=== PATIENT | female | born 1995 | race Caucasian/White ===

== ENCOUNTER 2023-01-02 12:34 | Emergency (ER) | payer OTHER ==
--- OUTSIDE RECORDS SUMMARY | 2023-01-02 12:40 | XMS REPORT | Continuity of Care Document ---
:1995 Author Organization [facility] t Address [address] [facility] [place] [place] [address] Care Team Providers Name Role Phone Chris Modi Primary Care Physician Hannah Argueta Attending Clinician Unavailable Christina Rangel Attending Clinician Unavailable AFSANEH VALLEJO Attending Clinician Unavailable STEPHEN HUFF Attending Clinician Unavailable ALAINA JONES MEDICAL Attending Clinician Unavailabl e LAB90 Attending Clinician Unavailable Misys Mendoza Attending Clinician Unavailable Jamia Wheatley Attending Clinician Unavailable SUKHWINDER MATHIS Attending Clinician Unavailable Lab, Adc Fam Pob I Attending Clinician Unavailable Oliva Zhao Attending Clinician Doctor Unassigned, Harbine Attending Clinician Unavailable KENDALL VILLATORO Attending Clinician Unavailable ANNA COVINGTON Attending Clinician Unavailable Garcia Taylor Admitting Clinician Unavailable Payers Payer Name Policy Type Policy Number Effective Date Expiration Date S escobar BCBS OF P [id number] [facility] AETNA MP SILVER 9 [id number] 2022 $30 COPAY 4000 00:00:00 BASIC 87 Blue Cross Blue 6 [id number] 2018 [facility] Shield of [place] 00:00:00 - [facility] BCBS ADV HMO [id number] 2018 EXCHANGE 00:00:00 Problems Condition Condition Condition Status Onset Resolution Last Treating Co mments Source Name Details Category Date Date Treatment Clinician Date Morbid Morbid Disease Active [facility] obesity 12-07 [facility] 00:00: Medical 00 [place] Osseo Osseo Disease Active [facility] St toxicity toxicity 12-06 [facility] 00:00: Medical 00 [place] Obesity Obesity Disease Active Univers (BMI (BMI 1-04 ity of 30-39.9) 30-39.9) 00:00: [place] [address] Medical Branch No known No known Disease Kelse y active active Seybold problems problems - Externa l [id number] PMDD Problem Active Common (premenstr Spirit ual - [facility] dysphoric [facility] disorder) [facility] [id number] IUD Problem Active Common surveillan Spirit ce [facility] [id number] Bulimia Problem Active Common [facility] [id number] Plantar Problem Active Comm on [id number] wart of Spirit left foot [facility] Asthma Asthma Problem Active Common [facility] [id number] Abnormal Problem Active Comm on EKG [facility] [id number] Dizziness Problem Active Com mon [facility] Mixed Depression Problem Active Commo n anxiety with Spirit and anxiety - CHI depressive [facility] [id number] Atypical Problem Active Comm on anorexia Spirit nervosa [facility] [id number] Eating Problem Active Common disorder, Spirit unspecifie - CHI d type [facility] [id number] Elevated Problem Active Comm on BP without Spirit diagnosis - [facility] of [facility] hypertensi [facility] [id number] POTS Problem Active Common (postural Spirit orthostati - [facility] c [facility] tachycardi [facility] syndrome) Center Bipolar Bipolar Disease Active [facility] St disorder disorder [facility] Allergies, Adverse Reactions, Alerts Allergy Allergy Status Severity Reaction(s) Onset Inactive Treating Comm ents Source Name Type Date Date Clinician NO KNOWN Allergy Active [facility] St ALLERGIE [facility] NO KNOWN Drug Active Univers ALLERGIE Class ity of S [facility] Social History Social Habit Start Date Stop Date Quantity Comments Source Exposure to Not sure [facility] of SARS-CoV-2 [facility] (event) Branch History of Common Spirit - Tobacco Use [facility] History SDOH [facility] Alcohol Std Medical Cent[facility] r Drinks History SDOH [facility] Alcohol Binge Medical Yung ter History SDOH [facility] Alcohol Comment Medical C enter Alcohol intake 2020-10-26 2020-10-26 Current [facility] St Alistair es 00:00:00 00:00:00 non-drinker of Medical Ce nter alcohol (finding) Tobacco use and 2020-08-11 2020-08-[address] [facility] exposure 00:00:00 00:00:00 [facility] History SDOH 2019-10-16 2019-10-[address] [facility] Alcohol Frequency 00:00:00 00:00:[address] [facility] Tobacco Comment 2016-12-06 2016-12-06 used to [facility] 00:00:00 00:00:00 [place], stopped Medical C enter smoking last year Sex Assigned At [address] [facility] 00:00:00 00:00:00 [facility] Smoking Status Start Date Stop Date Source Unknown if ever smoked [facility] Never smoked tobacco Alaina Peña old - External Former Smoker 2021-10-24 00:00:00 2021-10-24 00:00:00 Common S pirit - [facility] nter Current every day 2020-08-11 00:00:[address] [facility] [address] Alistair es Medical smoker Center Medications Ordered Filled Start Stop Current Ordering Indication Dosage Frequency Signature Comments Components Source Medication Medication Date Date Medication? Clinician (SIG) Name Name Levonorgest Yes by other Ke lsey rel 2-24 route Seybold (Mirena, 52 10:40: - MG,) 20 50 Externa MCG/DAY l intrauterin e IUD Pantoprazol 2023-0 Yes 1{tbl} Take 1 Ke livey e Sodium 40 2-24 tablet by Sey bold MG oral 10:40: mouth - Tablet 50 daily Externa Delayed l Response methylPREDN 2022-0 Yes [id number] 1{lacey} Take 1 lacey Foley ISolone 4 2-22 by mouth Seybol d MG oral 00:00: See Admin - Tablet 00 Instructio Externa Therapy ns Use as l Pack directed Benzonatate 2022-0 Yes [id number] 100mg Q.[id number] Take 1 Alaina (Tessalon 2-22 [id number] capsule S eybold Perles) 100 00:00: 3D (100 mg - MG oral 00 total) by Externa Capsule mouth 3 l times daily as needed for cough guaiFENesin 2022-0 Yes [id number] 5mL Q.[id number] Take 5 mL Alaina -Codeine 2-22 [id number] by mouth 3 Seybold 100-10 00:00: 3D times - MG/5ML oral 00 daily as Exte rna Syrup needed for l cough methylPREDN 2022-0 Yes [id number] 1{lacey} Take 1 lacey Foley ISolone 4 2-22 by mouth Seybol d MG oral 00:00: See Admin - Tablet 00 Instructio Externa Therapy ns Use as l Pack directed Benzonatate 2022-0 Yes [id number] 100mg Q.[id number] Take 1 Alaina (Tessalon 2-22 [id number] capsule S eybold Perles) 100 00:00: 3D (100 mg - MG oral 00 total) by Externa Capsule mouth 3 l times daily as needed for cough guaiFENesin 2022-0 Yes [id number] 5mL Q.[id number] Take 5 mL Alaina -Codeine 2-22 [id number] by mouth 3 Seybold 100-10 00:00: 3D times - MG/5ML oral 00 daily as Exte rna Syrup needed for l cough Azithromyci 2022-0 202- Yes [id number] Take 2 Alaina n 250 MG 2-22 -28 tablets by Seyb old oral Tablet 00:00: 05:59 mouth on - 00 :00 day 1 then Externa 1 tablet l by mouth daily for 4 days thereafter . Azithromyci 2022-0 2023- Yes [id number] Take 2 Alaina n 250 MG 2-27 12-28 tablets by Seyb old oral Tablet 00:00: 05:59 mouth on - 00 :00 day 1 then Externa 1 tablet l by mouth daily for 4 days thereafter . Gabapentin 2022-0 Yes 1200mg Take 1,200 Alaina 600 MG oral 2-04 mg by Seybold Tablet 00:00: mouth 2 - 00 times Externa daily l Gabapentin 2022-0 Yes 1200mg Take 1,200 Alaina 600 MG oral 2-04 mg by Seybold Tablet 00:00: mouth 2 - 00 times Externa daily l Ondansetron 2022-0 2022- No 4mg Take 4 mg Alaina HCl -23 11-19 by mouth Seybold (ZOFRAN) 4 18:47: 00:00 - MG OR TABS 03 :00 Externa l Amoxicillin 2022-0 2022- No 500mg Take 500 Alaina 500 MG OR 11-23-19 mg by Seybold TABS 18:46: 00:00 mouth 3 - 57 :00 times Externa daily l Levonorgest 0 Yes by other Ke lsey rel 1-19 route Seybold (Mirena, 52 10:18: - MG,) 20 14 Externa MCG/DAY l intrauterin e IUD Pantoprazol Yes 1{tbl} Take 1 Ke lsey e Sodium 40 1-19 tablet by Sey bold MG oral 10:18: mouth - Tablet 14 daily Externa Delayed l Response Levonorgest 0 Yes by other Ke lsey rel 1-19 route Seybold (Mirena, 52 10:18: - MG,) 20 14 Externa MCG/DAY l intrauterin e IUD Pantoprazol 0 Yes 1{tbl} Take 1 Ke lsey e Sodium 40 1-19 tablet by Sey bold MG oral 10:18: mouth - Tablet 14 daily Externa Delayed l Response Aripiprazol 2022-0 Yes 1{tbl} Take 1 Ke lsey e 5 MG oral 1-13 tablet by Sey bold Tablet 00:00: mouth - 00 daily Externa l Aripiprazol 2022-0 Yes 1{tbl} Take 1 Ke lsey e 5 MG oral 1-13 tablet by Sey bold Tablet 00:00: mouth - 00 daily Externa l Aripiprazol Yes 1{tbl} Take 1 Ke lsey e 5 MG oral 1-13 tablet by Sey bold Tablet 00:00: mouth - 00 daily Externa l Albuterol Yes INHALE TWO Ke lsey HFA 108 (90 1-05 (2) PUFFS Sey bold Base) 00:00: BY MOUTH - MCG/ACT IN 00 EVERY 4-6 Exte rna AERS HOURS l NEEDED FOR SHORTNESS OF BREATH, COUGH, OR WHEEZING. Albuterol Yes INHALE TWO Ke lsey HFA 108 (90 1-05 (2) PUFFS Sey bold Base) 00:00: BY MOUTH - MCG/ACT IN 00 EVERY 4-6 Exte rna AERS HOURS l NEEDED FOR SHORTNESS OF BREATH, COUGH, OR WHEEZING. Albuterol Yes INHALE TWO Ke lsey HFA 108 (90 1-05 (2) PUFFS Sey bold Base) 00:00: BY MOUTH - MCG/ACT IN 00 EVERY 4-6 Exte rna AERS HOURS l NEEDED FOR SHORTNESS OF BREATH, COUGH, OR WHEEZING. Duloxetine 2021-11 Yes 120mg Take 120 Ke lsey HCl 60 MG 2-26 mg by Seybold oral Cap 00:00: mouth - Particles 00 daily Externa l Vyvanse 50 2021-11 Yes 50mg Take 50 mg K elsey MG oral 2-26 by mouth Seybold Capsule 00:00: daily - 00 Externa l Zolpidem 2021-11 Yes TAKE ONE Kelse y Tartrate 5 2-26 (1) OR TWO Sey bold MG oral 00:00: (2) - Tablet 00 TABLET(S) Externa BY MOUTH l ONCE A DAY AT BEDTIME NEEDED FOR SLEEP. Duloxetine 2021-11 Yes 120mg Take 120 Ke lsey HCl 60 MG 2-26 mg by Seybold oral Cap DR 00:00: mouth - Particles 00 daily Externa l Vyvanse 50 2021-11 Yes 50mg Take 50 mg K elsey MG oral 2-26 by mouth Seybold Capsule 00:00: daily - 00 Externa l Zolpidem 2021-11 Yes TAKE ONE Kelse y Tartrate 5 2-26 (1) OR TWO Sey bold MG oral 00:00: (2) - Tablet 00 TABLET(S) Externa BY MOUTH l ONCE A DAY AT BEDTIME NEEDED FOR SLEEP. Duloxetine 2021-11 Yes 120mg Take 120 Ke lsey HCl 60 MG 2-26 mg by Seybold oral Cap DR 00:00: mouth - Particles 00 daily Externa l Vyvanse 50 2021-11 Yes 50mg Take 50 mg K elsey MG oral 2-26 by mouth Seybold Capsule 00:00: daily - 00 Externa l Zolpidem 2021-11 Yes TAKE ONE Kelse y Tartrate 5 2-26 (1) OR TWO Sey bold MG oral 00:00: (2) - Tablet 00 TABLET(S) Externa BY MOUTH l ONCE A DAY AT BEDTIME NEEDED FOR SLEEP. Ondansetron 2021-[address] K elsey (ZOFRAN) 4 1-08 (1) TABLET Sey bold MG oral 00:00: BY MOUTH - TABLET 00 ON THE Externa DISPERSIBLE TONGUE AND l ALLOW TO DISSOLVE EVERY 8 HOURS NEEDED. Ondansetron 2021-[address] K elsey (ZOFRAN) 4 1-08 (1) TABLET Sey bold MG oral 00:00: BY MOUTH - TABLET 00 ON THE Externa DISPERSIBLE TONGUE AND l ALLOW TO DISSOLVE EVERY 8 HOURS NEEDED. Ondansetron 2021-[address] K elsey (ZOFRAN) 4 1-08 (1) TABLET Sey bold MG oral 00:00: BY MOUTH - TABLET 00 ON THE Externa DISPERSIBLE TONGUE AND l ALLOW TO DISSOLVE EVERY 8 HOURS NEEDED. Prazosin 2020-11 Yes 1{capsu 1 capsule K elsey HCl 5 MG 0-17 le} by other Seybold oral 00:00: route - Capsule 00 Externa l Prazosin 2020-11 Yes 1{capsu 1 capsule K elsey HCl 5 MG 0-17 le} by other Seybold oral 00:00: route - Capsule 00 Externa l Prazosin 2020-11 Yes 1{capsu 1 capsule K elsey HCl 5 MG 0-17 le} by other Seybold oral 00:00: route - Capsule 00 Externa l fLUoxetine Yes 30mg QD Take [address] (PROZAC) 10 4-10 by mouth Luke s MG capsule 15:14: daily. Medic al 46 [place] fLUoxetine 2020-0 Yes 30mg QD Take [address] (PROZAC) 10 4-10 by mouth Luke s MG capsule 15:14: daily. Medic al 46 [place] OLANZapine 2019-0 Yes TK [address] [facility] (ZYPREXA) 4-02 [facility] 7.5 MG 00:00: Medical tablet 00 [place] OLANZapine 2019-0 Yes TK [address] [facility] (ZYPREXA) 4-02 [facility] 7.5 MG 00:00: Medical tablet 00 [place] clomiPRAMIN 2019-0 Yes TK [address] [facility] 3-24 [facility]D [facility] (ANAFRANIL) 00:00: Medica l 50 MG 00 [place] capsule clomiPRAMIN 2019-0 Yes TK [address] [facility] 3-[facility]D [facility] (ANAFRANIL) 00:00: Medica l 50 MG 00 [place] capsule gabapentin 2019-0 Yes TK [address] [facility] (NEURONTIN) 3-20 QD [facility] 300 MG 00:00: Medical capsule 00 [place] gabapentin 2019-0 Yes TK [address] [facility] (NEURONTIN) 3-20 QD [facility] 300 MG 00:00: Medical capsule 00 [place] hydrOXYzine 2019-0 Yes TK [address] [facility] (VISTARIL) 2-19 TID PRN [facility]ukes 25 MG 00:00: Medical capsule 00 [place] hydrOXYzine 2019-0 Yes TK [address] C [facility] (VISTARIL) 2-19 TID PRN [facility]ukes 25 MG 00:00: Medical capsule 00 [place] Ventolin Ventolin Yes Christina 2 puffs as Common HFA HFA 3-06 Millender needed Spirit 00:00: - CHI 00 [facility] Drospirenon Drospirenon 2017- Yes Christina 1 tablet Common e-Ethinyl e-Ethinyl 2-14 Millender Spirit Estradiol Estradiol 00:00: - C HI [facility] hyoscyamine 2016- Yes .125mg Take 1 Un buffy 0.125 mg 1-04 tablet by ity of tablet 00:00: mouth [place] 00 every 4 Medical (four) Branch hours as needed for Pain (scale 7-10). famotidine 2017-0 Yes 20mg Take 1 Unive rs 20 mg 1-04 tablet by ity of tablet 00:00: mouth 2 [place] 00 (two) Medical times Branch daily. ondansetron 2017-0 Yes 4mg Take 1 Univ ers 4 mg 1-04 tablet by ity of disintegrat 00:00: mouth [place] ing tablet 00 every 8 Medica l (eight) Branch hours as needed for Nausea and Vomiting (N/V). hyoscyamine 2017-0 Yes .125mg Take 1 Un buffy 0.125 mg 1-04 tablet by ity of tablet 00:00: mouth [place] 00 every 4 Medical (four) Branch hours as needed for Pain (scale 7-10). famotidine 2017-0 Yes 20mg Take 1 Unive rs 20 mg 1-04 tablet by ity of tablet 00:00: mouth 2 [place] 00 (two) Medical times Branch daily. ondansetron 2017-0 Yes 4mg Take 1 Univ ers 4 mg 1-04 tablet by ity of disintegrat 00:00: mouth [place] ing tablet 00 every 8 Medica l (eight) Branch hours as needed for Nausea and Vomiting (N/V). hyoscyamine 2017-0 Yes .125mg Take 1 Un buffy 0.125 mg 1-04 tablet by ity of tablet 00:00: mouth [place] 00 every 4 Medical (four) Branch hours as needed for Pain (scale 7-10). famotidine 2017-0 Yes 20mg Take 1 Unive rs 20 mg 1-04 tablet by ity of tablet 00:00: mouth 2 [place] 00 (two) Medical times Branch daily. ondansetron 2017-0 Yes 4mg Take [address] (ZOFRAN-ODT 1-04 by mouth. Alistair es ) 4 MG 00:00: Medical disintegrat 00 Center ing tablet ondansetron 2017-0 Yes 4mg Take [address] (ZOFRAN-ODT 1-04 by mouth. Alistair es ) 4 MG 00:00: Medical disintegrat 00 Center ing tablet ondansetron 2017-0 Yes 4mg Take 1 Univ ers 4 mg 1-04 tablet by ity of disintegrat 00:00: mouth [place] ing tablet 00 every 8 Medica l (eight) Branch hours as needed for Nausea and Vomiting (N/V). Mirena (52 Mirena (52 Yes Christina as Co mmon MG) MG) Millender directed [facility] Seroquel Seroquel Yes Christina 1 tablet Co mmon Millender [facility] Luvox CR Luvox CR Yes Christina 300 mg>>>1 Common Millender capsule [facility] Prazosin Prazosin Yes Christina 1 [facility] OLANZapine OLANZapine No 1{table QD 10 MG 10 MG t} Reglan 5 MG Reglan 5 MG No 1{table QD t_befor e_meals } Gabapentin Gabapentin No 1{capsu TID 300 MG 300 MG le} ARIPiprazol ARIPiprazol No e 10 MG e 10 MG Naltrexone Naltrexone No HCl 50 MG HCl 50 MG hydrOXYzine hydrOXYzine No Pamoate 25 Pamoate 25 MG MG Prazosin Prazosin No 2{capsu QD HCl 2 MG HCl 2 MG le} Mirena (52 Mirena (52 No MG) 20 MG) 20 MCG/24HR MCG/24HR Pantoprazol Pantoprazol No e Sodium 40 e Sodium 40 MG MG clomiPRAMIN clomiPRAMIN No E HCl 50 MG E HCl 50 MG Propranolol Propranolol No HCl 20 MG HCl 20 MG OLANZapine OLANZapine No 1{table QD 10 MG 10 MG t} Reglan 5 MG Reglan 5 MG No 1{table QD t_befor e_meals } Gabapentin Gabapentin No 1{capsu TID Gabapentin 300 MG 300 MG le} 300 MG ARIPiprazol ARIPiprazol No ARIPiprazo e 10 MG e 10 MG le 10 MG Naltrexone Naltrexone No Naltrexone HCl 50 MG HCl 50 MG HCl 50 MG hydrOXYzine hydrOXYzine No hydrOXYzin Pamoate 25 Pamoate 25 e Pamoate MG MG 25 MG Prazosin Prazosin No 2{capsu QD Prazosin HCl 2 MG HCl 2 MG le} HCl 2 MG Mirena (52 Mirena (52 No Mirena (52 MG) 20 MG) 20 MG) 20 MCG/24HR MCG/24HR MCG/24HR Pantoprazol Pantoprazol No Pantoprazo e Sodium 40 e Sodium 40 le Sodium MG MG 40 MG clomiPRAMIN clomiPRAMIN No clomiPRAMI E HCl 50 MG E HCl 50 MG NE HCl 50 MG Propranolol Propranolol No Propranolo HCl 20 MG HCl 20 MG l HCl 20 MG OLANZapine OLANZapine No 1{table QD OLANZapine 10 MG 10 MG t} 10 MG Reglan 5 MG Reglan 5 MG No 1{table QD Reglan 5 t_befor MG e_meals } Naltrexone Naltrexone No Naltrexone HCl 50 MG HCl 50 MG HCl 50 MG Reglan 5 MG Reglan 5 MG No 1{table QD Reglan 5 t_befor MG e_meals } OLANZapine OLANZapine No 1{table QD OLANZapine 10 MG 10 MG t} 10 MG clomiPRAMIN clomiPRAMIN No clomiPRAMI E HCl 50 MG E HCl 50 MG NE HCl 50 MG Pantoprazol Pantoprazol No Pantoprazo e Sodium 40 e Sodium 40 le Sodium MG MG 40 MG hydrOXYzine hydrOXYzine No hydrOXYzin Pamoate 25 Pamoate 25 e Pamoate MG MG 25 MG Prazosin Prazosin No 2{capsu QD Prazosin HCl 2 MG HCl 2 MG le} HCl 2 MG Propranolol Propranolol No Propranolo HCl 20 MG HCl 20 MG l HCl 20 MG Gabapentin Gabapentin No 1{capsu TID Gabapentin 300 MG 300 MG le} 300 MG ARIPiprazol ARIPiprazol No ARIPiprazo e 10 MG e 10 MG le 10 MG Mirena (52 Mirena (52 No Mirena (52 MG) 20 MG) 20 MG) 20 MCG/24HR MCG/24HR MCG/24HR Naltrexone Naltrexone No Naltrexone HCl 50 MG HCl 50 MG HCl 50 MG Reglan 5 MG Reglan 5 MG No 1{table QD Reglan 5 t_befor MG e_meals } OLANZapine OLANZapine No 1{table QD OLANZapine 10 MG 10 MG t} 10 MG clomiPRAMIN clomiPRAMIN No clomiPRAMI E HCl 50 MG E HCl 50 MG NE HCl 50 MG Pantoprazol Pantoprazol No Pantoprazo e Sodium 40 e Sodium 40 le Sodium MG MG 40 MG hydrOXYzine hydrOXYzine No hydrOXYzin Pamoate 25 Pamoate 25 e Pamoate MG MG 25 MG Prazosin Prazosin No 2{capsu QD Prazosin HCl 2 MG HCl 2 MG le} HCl 2 MG Propranolol Propranolol No Propranolo HCl 20 MG HCl 20 MG l HCl 20 MG Gabapentin Gabapentin No 1{capsu TID Gabapentin 300 MG 300 MG le} 300 MG ARIPiprazol ARIPiprazol No ARIPiprazo e 10 MG e 10 MG le 10 MG Mirena (52 Mirena (52 No Mirena (52 MG) 20 MG) 20 MG) 20 MCG/24HR MCG/24HR MCG/24HR Gabapentin Gabapentin No 1{capsu TID Gabapentin 300 MG 300 MG le} 300 MG ARIPiprazol ARIPiprazol No ARIPiprazo e 10 MG e 10 MG le 10 MG Naltrexone Naltrexone No Naltrexone HCl 50 MG HCl 50 MG HCl 50 MG hydrOXYzine hydrOXYzine No hydrOXYzin Pamoate 25 Pamoate 25 e Pamoate MG MG 25 MG Prazosin Prazosin No 2{capsu QD Prazosin HCl 2 MG HCl 2 MG le} HCl 2 MG Mirena (52 Mirena (52 No Mirena (52 MG) 20 MG) 20 MG) 20 MCG/24HR MCG/24HR MCG/24HR Pantoprazol Pantoprazol No Pantoprazo e Sodium 40 e Sodium 40 le Sodium MG MG 40 MG clomiPRAMIN clomiPRAMIN No clomiPRAMI E HCl 50 MG E HCl 50 MG NE HCl 50 MG Propranolol Propranolol No Propranolo HCl 20 MG HCl 20 MG l HCl 20 MG OLANZapine OLANZapine No 1{table QD OLANZapine 10 MG 10 MG t} 10 MG Reglan 5 MG Reglan 5 MG No 1{table QD Reglan 5 t_befor MG e_meals } Gabapentin Gabapentin No 1{capsu TID 300 MG 300 MG le} ARIPiprazol ARIPiprazol No e 10 MG e 10 MG Naltrexone Naltrexone No HCl 50 MG HCl 50 MG hydrOXYzine hydrOXYzine No Pamoate 25 Pamoate 25 MG MG Prazosin Prazosin No 2{capsu QD HCl 2 MG HCl 2 MG le} Mirena (52 Mirena (52 No MG) 20 MG) 20 MCG/24HR MCG/24HR Pantoprazol Pantoprazol No e Sodium 40 e Sodium 40 MG MG clomiPRAMIN clomiPRAMIN No E HCl 50 MG E HCl 50 MG Propranolol Propranolol No HCl 20 MG HCl 20 MG Immunizations Ordered Immunization Filled Immunization Date Status Commen ts Source Name Name Tdap- (Boostrix, 2020-10-24 Completed Alaina Martinez) 00:00:00 - External Tdap- (Boostrix, 2020-10-24 Completed Alaina friedman Adacel) 00:00:00 - External Tdap- (Boostrix, 2020-10-24 Completed Alaina friedman [place]ike) 00:00:00 - External Tdap 2020-10-[address] [facility] 00:00:00 [facility] Tdap 2020-10-[address] [facility] 00:00:00 [facility] Meningococcal 2016-03-22 Completed Alaina Seyb old Vaccine- 00:00:00 - External Conjugate(Menactra) Meningococcal 2016-03-22 Completed Alaina Seyb old Vaccine- 00:00:00 - External Conjugate(Menactra) Meningococcal 2016-03-22 Completed Alaina Seyb old Vaccine- 00:00:00 - External Conjugate(Menactra) Influenza Virus 2013-09-29 Completed Alaina Se ybold Vaccine, No Preserv, 00:00:00 - Ex ternal age 6 months and up Influenza Virus 2013-09-29 Completed Alaina Se ybold Vaccine, No Preserv, 00:00:00 - Ex ternal age 6 months and up Influenza Virus 2013-09-29 Completed Alaina Se ybold Vaccine, No Preserv, 00:00:00 - Ex ternal age 6 months and up Influenza, Seasonal, 2012-08-24 Completed Ivon ey Seybold Injectable 00:00:00 - External Influenza, Seasonal, 2012-08-24 Completed Ivon ey Seybold Injectable 00:00:00 - External Influenza, Seasonal, 2012-08-24 Completed Ivon ey Seybold Injectable 00:00:00 - External HPV 4 (Human 2012-05-22 Completed Alaina Seybo ld Papillomavirus) 00:00:00 - Externa l HPV 4 (Human 2012-05-22 Completed Alaina Seybo ld Papillomavirus) 00:00:00 - Externa l HPV 4 (Human 2012-05-22 Completed Alaina Seybo ld Papillomavirus) 00:00:00 - Externa l Meningococcal 2012-03-22 Completed Alaina Seyb old Vaccine- 00:00:00 - External Conjugate(Menactra) HPV 4 (Human 2012-03-22 Completed Alaina Seybo ld Papillomavirus) 00:00:00 - Externa l Meningococcal 2012-03-22 Completed Alaina Seyb old Vaccine- 00:00:00 - External Conjugate(Menactra) HPV 4 (Human 2012-03-22 Completed Alaina Seybo ld Papillomavirus) 00:00:00 - Externa l Meningococcal 2012-03-22 Completed Alaina Seyb old Vaccine- 00:00:00 - External Conjugate(Menactra) HPV 4 (Human 2012-03-22 Completed Alaina Gibson ld Papillomavirus) 00:00:00 - Externa l HEPATITIS A- 2010-10-26 Completed Alaina jaclyn ld PEDI/ADOL 00:00:00 - External HEPATITIS A- 2010-10-26 Completed Alaina graceo ld PEDI/ADOL 00:00:00 - External HEPATITIS A- 2010-10-26 Completed Alaina jaclyn ld PEDI/ADOL 00:00:00 - External Vital Signs Vital Name Observation Time Observation Value Comments Source Systolic blood 2022-12-29 16:43:00 133 mm[Hg] Alaina Seybold - pressure External Diastolic blood 2022-12-29 16:43:00 87 mm[Hg] Seanse y Seybold - pressure External Heart rate 2022-12-29 16:43:00 83 /min Alaina S eybold - External Body temperature 2022-12-29 16:43:00 36.72 Mike Ivon ey Seybold - External Respiratory rate 2022-12-29 16:43:00 18 /min Ivon ey Seybold - External Body height 2022-12-29 16:43:00 172.7 cm Alaina Avelar eybold - External Body weight 2022-12-29 16:43:00 99.338 kg Alaina Avelar eybold - External BMI 2022-12-29 16:43:00 33.30 kg/m2 Alaina S eybold - External Systolic blood 2022-11-23 16:11:00 114 mm[Hg] Alaina Seybold - pressure External Diastolic blood 2022-11-23 16:11:00 62 mm[Hg] Kelse y Seybold - pressure External Heart rate 2022-11-23 16:11:00 117 /min Alaina S eybold - External Body temperature 2022-11-23 16:11:00 37.28 Mike Ivon ey Seybold - External Respiratory rate 2022-11-23 16:11:00 14 /min Ivon ey Seybold - External Body height 2022-11-23 16:11:00 172.7 cm Alaina S eybold - External Body weight 2022-11-23 16:11:00 99.791 kg Alaina Avelar eybold - External BMI 2022-11-23 16:11:00 33.45 kg/m2 Alaina waltonkaterina External height 2021-10-24 10:20:00 66.60 [in_i] [facility] weight 2021-10-24 10:20:00 209 [lb_av] [facility] temperature 2021-10-24 10:20:00 96.4 [degF] [facility] bmi 2021-10-24 10:20:00 33.12 kg/m2 [facility] respiratory rate 2021-10-24 10:20:00 15 /min Comm on [facility] height 2021-06-09 11:00:00 66.60 [in_i] [facility] weight 2021-06-09 11:00:00 202 [lb_av] [facility] temperature 2021-06-09 11:00:00 98.3 [degF] [facility] bmi 2021-06-09 11:00:00 32.02 kg/m2 [facility] oximetry 2021-06-09 11:00:00 97 % [facility] respiratory rate 2021-06-09 11:00:00 18 /min Comm on [facility] blood pressure 2021-06-09 11:00:00 119 mm[Hg] Common [facility] - systolic [facility] blood pressure 2021-06-09 11:00:00 56 mm[Hg] [facility] diastolic [facility] WEIGHT 2020-10-24 11:14:00 82.101 kg HEIGHT 2020-08-11 00:00:00 170.2 cm WEIGHT 2020-08-11 00:00:00 72.122 kg HEIGHT 2020-08-11 00:00:00 170.2 cm WEIGHT 2020-08-11 00:00:00 72.122 kg Procedures This patient has no known procedures. Plan of Care Planned Activity Planned Date Details Comments Source Future Scheduled 2030-10-24 DTAP/TDAP/TD VACCINES [facility] 00:[facility]:00 (2 - Td or Tdap) [code Medic al Center = DTAP/TDAP/TD VACCINES (2 - Td or Tdap)] Future Scheduled 2030-10-24 DTAP/TDAP/TD VACCINES [facility] 00:00:00 (2 - Td or Tdap) [code Medic al Center = DTAP/TDAP/TD VACCINES (2 - Td or Tdap)] Future Scheduled 2022-07-06 INFLUENZA VACCINE (#1) [facility] 00:[facility]00 [code = INFLUENZA Medical Ce nter VACCINE (#1)] Future Scheduled 2022-07-06 INFLUENZA VACCINE (#1) [facility] 00:00:00 [code = INFLUENZA Medical Ce nter VACCINE (#1)] Future Scheduled 2021-10-[address] [facility] 00:00:00 Counseling and Medical Cente r Screening (12+) [code = Tobacco Cessation Counseling and Screening (12+)] Future Scheduled 2021-10-[address] [facility] 00:00:00 Counseling and Medical Cente r Screening (12+) [code = Tobacco Cessation Counseling and Screening (12+)] Future Scheduled 2017-01-[address] [facility] 00:[facility]:00 malignant neoplasm of Medica l Center cervix (procedure) [code = 358597072] Future Scheduled 2017-01-[address] [facility] 00:00:00 malignant neoplasm of Medica l Center cervix (procedure) [code = 504484134] Future Scheduled [address] [facility] (procedure) [code = [facility] [id number]] Future Scheduled [address] [facility] 00:[facility]:00 (procedure) [code = [facility] [id number]] Future Scheduled 2014-01-28 HEPATITIS C SCREENING [facility] [code = HEPATITIS C Medical Center SCREENING] Future Scheduled 2014-01-28 HEPATITIS C SCRE[facility]ING [facility] 00:00:00 [code = HEPATITIS C Medical Center SCREENING] Future Scheduled 2002-01-[address] [facility] 00:00:00 0-64 YRS (1 - PCV) Medical C enter [code = PNEUMOCOCCAL VACCINE 0-64 YRS (1 - PCV)] Future Scheduled 2002-01-[address] [facility] 00:00:00 0-64 YRS (1 - PCV) Medical C enter [code = PNEUMOCOCCAL VACCINE 0-64 YRS (1 - PCV)] Future Scheduled 1996 COVID-19 VACCINE (#1) [facility] 00:00:00 [code = COVID-[address] VACCINE (#1)] Future Scheduled 1996 COVID-19 VACCINE (#1) [facility] 00:00:00 [code = COVID-[address] VACCINE (#1)] Encounters Start End Encounter Admission Attending Care Care Encounter Source Date/Time Date/Time Type Type Clinicians Facility Department ID 2021-12-07 Outpatient [facility] [id number] Legacy 05:04:23 [facility] 2021-11-30 Outpatient Clifton, STLMLC STLC [id number] Common 13:35:41 Hannah [id number] [facility] 2021-11-30 Outpatient Clifton, STLMLC STLC [id number] Common 12:38:05 Hannah [id number] [facility] 2021-11-30 Outpatient Millender, STLMLC STLC [id number] Common 11:33:09 Christina [id number] [facility] 2021-11-30 Outpatient Millender, STLMLC STLC [id number] Common 11:17:00 Christina [id number] [facility] 2021-11-30 Outpatient Millender, STLMLC STLMLC [id number] Common 11:16:38 Christina [id number] [facility] 2021-08-21 Outpatient [facility] [id number] Legacy 09:43:38 [id number] [facility] 2021-08-18 Outpatient [facility] [id number] Legacy 18:00:25 [id number] [facility] 2023-02-27 2023-02-27 Outpatient ALAINA VALLEJO [id number] Norberto Foley 11:00:00 11:00:00 AFSANEH Seybol d 2023-01-11 2023-01-11 Outpatient ALAINA FOLEY [id number] [place] 11:00:00 11:00:00 Seybol d 2023-01-08 2023-01-08 Outpatient HUNDL, ALAINA FOLEY [id number] [place] 10:30:00 10:30:00 STEPHEN Seybol d 2023-01-08 2023-01-08 Outpatient HUNDL, ALAINA FOLEY [id number] [place] 10:30:00 10:30:00 STEPHEN Seybol d 2023-01-02 2023-01-02 Outpatient ALAINA FOLEY [id number] [place] 10:35:00 10:35:00 Seybol d 2023-01-02 2023-01-02 Outpatient ALAINA FOLEY [id number] [place] 10:35:00 10:35:00 Seybol d 2022-12-31 2022-12-31 Outpatient HUNDL, ALAINA FOLEY [id number] [place] 00:00:00 00:00:00 STEPHEN Seybol d 2022-12-29 2022-12-29 Outpatient GENEVIEVE, ALAINA FOLEY [id number] [place] 11:00:00 11:00:00 AFSANEH Seybol d 2022-12-27 2022-12-27 Outpatient HUNDL, ALAINA FOLEY [id number] [place] 11:00:00 11:00:00 STEPHEN Seybol d 2022-12-26 2022-12-26 Outpatient HUNDL, ALAINA FOLEY [id number] [place] 00:00:00 00:00:00 STEPHEN Seybol d 2022-11-30 2022-11-30 Outpatient HUNDL, ALAINA FOLEY [id number] [place] 00:00:00 00:00:00 STEPHEN Seybol d 2022-11-29 2022-11-29 Outpatient GROUP, ALAINA FOLEY [id number] [place] 00:00:00 00:00:00 ALAINA Seybol d 2022-11-25 2022-11-25 Outpatient ALAINA FOLEY [id number] [place] 00:00:00 00:00:00 Seybol d 2022-11-24 2022-11-24 Outpatient HUNDL, ALAINA FOLEY [id number] [place] 00:00:00 00:00:00 STEPHEN Seybol d 2022-11-24 2022-11-24 Outpatient REFUGIO ALAINA FOLEY [id number] [place] 00:00:00 00:00:00 STEPHEN Seybol d 2022-11-24 2022-11-24 Outpatient REFUGIO ALAINA FOLEY [id number] [place] 00:00:00 00:00:00 STEPHEN Seybol d 2022-11-24 2022-11-24 Outpatient REFUGIO ALAINA FOLEY [id number] [place] 00:00:00 00:00:00 STEPHEN Seybol d 2022-11-24 2022-11-24 Outpatient REFUGIO ALAINA FOLEY [id number] [place] 00:00:00 00:00:00 STEPHEN Seybol d 2022-11-23 2022-11-23 Outpatient LAB90 ALAINA FOLEY [id number] [place] 11:15:00 11:15:00 Seybol d 2022-11-23 2022-11-23 Outpatient REFUGIO ALAINA ALAINA [id number] [place] 10:30:00 10:30:00 STEPHEN Seybol d 2022-10-23 2022-10-23 Outpatient MARLI Reji [facility] [id number] [facility] 09:43:00 09:43:00 [facility] 2021-10-27 2021-10-27 (TEL) STLMLC STLMLC [id number] Co mmon 00:00:00 00:00:00 [facility] 2021-10-26 2021-10-26 (TEL) STLMLC STLMLC [id number] Co mmon 00:00:00 00:00:00 [facility] 2021-10-24 2021-10-24 OFFICE STLMLC STLMLC [id number] Co mmon 00:00:00 00:00:00 VISIT EST Spir it PT LEVEL 3 - [facility] 2021-10-24 2021-10-24 (TEL) STLMLC STLMLC [id number] Co mmon 00:00:00 00:00:00 Spirit - [facility] 2021-06-09 2021-06-09 [facility] [id number] Co mmon 00:00:00 00:00:00 VISIT Spirit ESTAB PT - [facility] LEVEL 4 [facility] 2021-06-09 2021-06-09 (TEL) STLMLC STLMLC [id number] Co mmon 00:00:00 00:00:00 Spirit - [facility] 2020-11-03 2020-11-03 Outpatient Holste, [facility] [id number] [facility] 15:00:00 15:00:00 [facility] 2020-10-24 2020-10-24 Emergency ER SLE Emergency [id number] SLE 11:00:00 11:00:00 2020-08-11 2020-08-11 Emergency ER SLE Emergency [id number] SLE 12:08:00 12:08:00 2020-07-23 2020-07-23 Laboratory Lab, Adc Fam Pob I [facility] 1.2. [id number] Univers 12:59:45 13:19:45 Only [facility] [id number] ity of [place] 4.2.7.2.686 Alejandro as Professio [phone] [address] Office [address] 2020-07-23 2020-07-23 Outpatient R [facility] [id number] Univers 13:00:00 13:00:00 ity of [facility] 2020-07-23 2020-07-23 Letter Doctor CASTILLO [id number] Univers 00:00:00 00:00:00 (Out) Unassigned, JAYLYN [id number] ity of [facility] 4.2.7.2.686 Alejandro as [phone] [address] 2020-07-23 2020-07-23 Letter Doctor CASTILLO [id number] Univers 00:00:00 00:00:00 (Out) Unassigned, JAYLYN 350.1.13.10 ity of [facility] 4.2.7.2.686 Alejandro as [phone] [address] 2020-06-02 2020-06-02 [facility] [id number] Common 13:00:00 13:00:[address] [facility] 2020-02-13 2020-02-13 Emergency SLEH [facility] [id number] [facility] 15:03:00 15:03:00 [id number] 2019-06-25 2019-06-25 [facility] [id number] Common 11:39:00 11:39:[address] [facility] 2019-03-06 2019-03-06 Out[facility] [id number] Common 11:44:00 11:44:[address] [facility] 2019-02-25 2019-02-25 Out[facility] [id number] Common 13:20:00 13:20:[address] [facility] 2019-01-14 2019-01-14 Out[facility] [id number] Common 15:46:00 15:46:[address] [facility] 2019-01-08 2019-01-08 Out[facility] [id number] Common 09:30:00 09:30:[address] [facility] 2018-12-23 2018-12-23 Out[facility] [id number] Common 09:14:00 09:14:[address] [facility] 2018-11-26 2018-11-26 Out[facility] [id number] Common 09:00:00 09:00:[address] [facility] 2018-10-18 2018-10-18 Out[facility] [id number] Common 11:00:00 11:00:00 [facility] Results Test Description Test Time Test Comments Results Result Sour e Comments - US PELVIS 2022-10-23 COMPLETE 00:00:00 [facility] 1995 Sex: F * Patient Name: JANIE BARRON Unit No: [id number] EXAMS: CPT CODE: [id number] US PELVIS COMPLETE 61947 PROCEDURE INFORMATION: Exam: US Pelvis Complete (Transabdominal), Pelvis (Transvaginal), and US Duplex Artery or Vein (Ovaries) Limited Exam date and time: 10/23/2022 10:36 AM Age: 27 years old Clinical indication: Pelvic pain; Additional info: Pel and perineal pain TECHNIQUE: Imaging protocol: Real-time transabdominal and transvaginal pelvic ultrasound (complete) with image documentation. Transvaginal imaging was used for better evaluation of the endometrium, adnexa, and/or cervix. Real-time duplex ultrasound scan of the arterial or venous flow of the ovaries with B-mode, color Doppler flow and spectral waveform analysis. Complete Pelvis, Limited Duplex. Duplex exam was performed to evaluate for torsion and other vascular conditions. COMPARISON: No relevant prior studies available. FINDINGS: Uterus: The uterus measures 7.3 x 3.4 by 3.2 cm. The endometrium measures 0.6 cm. An IUD is noted within the endometrial cavity. Right ovary: measures 2.4 x 2.2 x 1 3 cm and has a normal sonographic appearance. Color/Dopplerimaging demonstrated flow in the right ovary. Left ovary: measures 4.1 x 3.1 x 2.3 cm and has a normal sonographic appearance. Color/Doppler imaging demonstrated flow in the left ovary. There is no significant free fluid noted. The bladder was nondistended. IMPRESSION: 1. IUD within the endometrial cavity. No abnormalities identified. at 1139 Reported and signed by: Bety Velazquez MD CC: Missy Mendoza MD; Garcia Taylor MD Technologist: Argelia Hazel RDMS Probe: Trnscrbd D/ (1139) GCD.CPS Orig Print D/T: S: 10/23/2022 (1139) [facility] NAME: JANIE BARRON Radiology Department PHYS: Missy Robison [address] : 1995 AGE: 27 SEX: F [place], [place] [address] LOC: F.RAD PHONE #: [phone] EXAM DATE: 10/23/2022 STATUS: REG CLI FAX #: [phone] RAD NO: Page 1 Signed Report Patient Name: JANIE BARRON Unit No: [id number] EXAMS: CPT CODE: [id number] US PELVIS COMPLETE 77568 (Continued) [facility] NAME: JANIE BARRON Radiology Department PHYS: Missy Robison [address] : 1995 AGE: 27 SEX: F [place] [address] LOC: Mary.RAD PHONE #: [phone] EXAM DATE: 10/23/2022 STATUS: REG CLI FAX #: [phone] RAD NO: Page 2 Signed Report - DUP AB/PEL/SC/LTD 2022-10-23 00:00:00 [facility] 1995 Sex: F * Patient Name: JANIE BARRON Unit No: [id number] EXAMS: CPT CODE: [id number] DUP AB/PEL/SC/LTD 09217 PROCEDURE INFORMATION: Exam: US Pelvis Complete (Transabdominal), Pelvis (Transvaginal), and US Duplex Artery or Vein (Ovaries) Limited Exam date and time: 10/23/2022 10:36 AM Age: 27 years old Clinical indication: Pelvic pain; Additional info: Pel and perineal pain TECHNIQUE: Imaging protocol: Real-time transabdominal and transvaginal pelvic ultrasound (complete) with image documentation. Transvaginal imaging was used for better evaluation of the endometrium, adnexa, and/or cervix. Real-time duplex ultrasound scan of the arterial or venous flow of the ovaries with B-mode, color Doppler flow and spectral waveform analysis. Complete Pelvis, Limited Duplex. Duplex exam was performed to evaluate for torsion and other vascular conditions. COMPARISON: No relevant prior studies available. FINDINGS: Uterus: The uterus measures 7.3 x 3.4 by 3.2 cm. The endometrium measures 0.6 cm. An IUD is noted within the endometrial cavity. Right ovary: measures 2.4 x 2.2 x 1 3 cm and has a normal sonographic appearance. Color/Dopplerimaging demonstrated flow in the right ovary. Left ovary: measures 4.1 x 3.1 x 2.3 cm and has a normal sonographic appearance. Color/Doppler imaging demonstrated flow in the left ovary. There is no significant free fluid noted. The bladder was nondistended. IMPRESSION: 1. IUD within the endometrial cavity. No abnormalities identified. at 1139 Reported and signed by: Bety Velazquez MD CC: Missy Mendoza MD; Garcia Taylor MD Technologist: Argelia Hazel RDMS Probe: Trnscrbd D/ (1533) GCD.CPS Orig Print D/T: S: 10/23/2022 (8495) [facility] NAME: JANIE BARRON Radiology Department PHYS: Missy Robison [address] : 1995 AGE: 27 SEX: F [place], [place] [address] LOC: F.RAD PHONE #: [phone] EXAM DATE: 10/23/2022 STATUS: REG CLI FAX #: [phone] RAD NO: Page 1 Signed Report Patient Name: JANIE BARRON Unit No: [id number] EXAMS: CPT CODE: [id number] DUP AB/PEL/SC/LTD 06159 (Continued) [facility] NAME: JANIE BARRON Radiology Department PHYS: Missy Robison [address] : 1995 AGE: 27 SEX: F [place], [place] [address] LOC: Mary.RAD PHONE #: [phone] EXAM DATE: 10/23/2022 STATUS: REG CLI FAX #: [phone] RAD NO: Page 2 Signed Report - US TRANSVAGINAL 2022-10-23 W/PELVIS 00:00:00 [facility] 1995 Sex: F * Patient Name: JANIE BARRON Unit No: [id number] EXAMS: CPT CODE: [id number] US TRANSVAGINAL W/PELVIS 79647 PROCEDURE INFORMATION: Exam: US Pelvis Complete (Transabdominal), Pelvis (Transvaginal), and US Duplex Artery or Vein (Ovaries) Limited Exam date and time: 10/23/2022 10:36 AM Age: 27 years old Clinical indication: Pelvic pain; Additional info: Pel and perineal pain TECHNIQUE: Imaging protocol: Real-time transabdominal and transvaginal pelvic ultrasound (complete) with image documentation. Transvaginal imaging was used for better evaluation of the endometrium, adnexa, and/or cervix. Real-time duplex ultrasound scan of the arterial or venous flow of the ovaries with B-mode, color Doppler flow and spectral waveform analysis. Complete Pelvis, Limited Duplex. Duplex exam was performed to evaluate for torsion and other vascular conditions. COMPARISON: No relevant prior studies available. FINDINGS: Uterus: The uterus measures 7.3 x 3.4 by 3.2 cm. The endometrium measures 0.6 cm. An IUD is noted within the endometrial cavity. Right ovary: measures 2.4 x 2.2 x 1 3 cm and has a normal sonographic appearance. Color/Dopplerimaging demonstrated flow in the right ovary. Left ovary: measures 4.1 x 3.1 x 2.3 cm and has a normal sonographic appearance. Color/Doppler imaging demonstrated flow in the left ovary. There is no significant free fluid noted. The bladder was nondistended. IMPRESSION: 1. IUD within the endometrial cavity. No abnormalities identified. at 1139 Reported and signed by: Bety Velazquez MD CC: Missy Mendoza MD; Garcia Taylor MD Technologist: Argelia Hazel RDMS Probe: [id number] Trnscrbd D/ (1139) GCD.CPS Orig Print D/T: S: 10/23/2022 (1140) [facility] NAME: JANIE BARRON Radiology Department PHYS: Missy Robison [address] : 1995 AGE: 27 SEX: Mary [place] [address] LOC: HanhRAD PHONE #: [phone] EXAM DATE: 10/23/2022 STATUS: REG CLI FAX #: [phone] RAD NO: Page 1 Signed Report Patient Name: JANIE BARRON Unit No: [id number] EXAMS: CPT CODE: [id number] US TRANSVAGINAL W/PELVIS 59352 (Continued) [facility] NAME: JANIE BARRON Radiology Department PHYS: Missy Robison [address] : 1995 AGE: 27 SEX: F [place] [address] LOC: IRA PHONE #: [phone] EXAM DATE: 10/23/2022 STATUS: REG CLI FAX #: [phone] RAD NO: Page 2 Signed Report PHOSPHORUS 2020-08-11 13:34:00 Test Item Value Reference Range Interpretation Comme nts PHOSPHORUS (BEAKER) (test code = 604) 3.4 mg/dL 2.3-4.7 Barrel Straightener ID - SAGAR [id number] 13:34:00 Test Item Value Reference Range Interpretation Comments MAGNESIUM (BEAKER) (test code = 1.7 mg/dL 1.6-2.6 627) Barrel Straightener ID - SAGAR CCOMPREHENSIVE METABOLIC [id number] 13:34:00 Test Item Value Reference Range Interpretation Comments TOTAL PROTEIN 7.5 gm/dL 6.0-8.3 (BEAKER) (test code = 770) ALBUMIN (BEAKER) 4.5 g/dL 3.5-5.0 (test code = 1145) ALKALINE PHOSPHATASE 64 U/L 40-150 (BEAKER) (test code = 346) BILIRUBIN TOTAL 0.4 mg/dL 0.2-1.2 (BEAKER) (test code = 377) SODIUM (BEAKER) (test 138 meq/L 136-145 code = 381) POTASSIUM (BEAKER) 3.9 meq/L 3.5-5.1 (test code = 379) CHLORIDE (BEAKER) 101 meq/L 98-107 (test code = 382) CO2 (BEAKER) (test 23 meq/L 22-29 code = 355) BLOOD UREA NITROGEN 9 mg/dL 7-21 (BEAKER) (test code = 354) CREATININE (BEAKER) 0.89 mg/dL 0.57-1.25 (test code = 358) GLUCOSE RANDOM 63 mg/dL 70-105 L (BEAKER) (test code = 652) CALCIUM (BEAKER) 9.7 mg/dL 8.4-10.2 (test code = 697) AST (SGOT) (BEAKER) 20 U/L 5-34 (test code = 353) ALT (SGPT) (BEAKER) 15 U/L 6-55 (test code = 347) EGFR (BEAKER) (test 78 mL/min/1.73 ESTIMA [place]ALIA GFR IS code = 1092) sq m NOT ACCURATE CREATININE CLEARANCE IN PREDICTING GLOMERULAR FILTRATION RATE . ESTIMATED GFR I S NOT APPLICABLE FOR DIALYSIS PATIEN TS. Barrel Straightener ID - SAGAR CCREATINE KINASE (CK)2020-08-11 13:34:00 Test Item Value Reference Range Interpretation Comments CREATINE KINASE TOTAL (BEAKER) (test 179 U/L 29-200 code = 380) Barrel Straightener ID - SAGAR [id number] 13:23:00 Test Item Value Reference Range Interpretation Comments PROTIME (BEAKER) (test code = 14.5 seconds 11.9-14.2 H 759) INR (BEAKER) (test code = 370) 1.16 <=5.90 PARTIAL THROMBOPLASTIN TIME 34.2 seconds 22.5-36.0 (BEAKER) (test code = 760) Effective 04/02/2019: PT Reference Range ChangeNew: 11.9-14.2 Previous: 11.7- 14.7RECOMMENDED COUMADIN/WARFARIN INR THERAPY RANGESSTANDARD DOSE: 2.0-3.0 Includes: PROPHYLAXIS for venous thrombosis, systemic embolization; TREATMENT for venous thrombosis and/or pulmonary embolus.HIGH RISK: Target INR is 2.5-3.5 for patients wiht mechanical heart valves.CBC W/PLT COUNT & AUTO [id number] 13:13:00 Test Item Value Reference Range Interpretation Comments WHITE BLOOD CELL COUNT (BEAKER) 5.5 K/ L 3.5-10.5 (test code = 775) RED BLOOD CELL COUNT (BEAKER) 4.33 M/ L 3.93-5.22 (test code = 761) HEMOGLOBIN (BEAKER) (test code = 13.0 GM/DL 11.2-15.7 410) HEMATOCRIT (BEAKER) (test code = 38.8 % 34.1-44.9 411) MEAN CORPUSCULAR VOLUME (BEAKER) 89.6 fL 79.4-94.8 (test code = 753) MEAN CORPUSCULAR HEMOGLOBIN 30.0 pg 25.6-32.2 (BEAKER) (test code = 751) MEAN CORPUSCULAR HEMOGLOBIN CONC 33.5 GM/DL 32.2-35.5 (BEAKER) (test code = 752) RED CELL DISTRIBUTION WIDTH 12.0 % 11.7-14.4 (BEAKER) (test code = 412) PLATELET COUNT (BEAKER) (test 283 K/CU MM 150-450 code = 756) MEAN PLATELET VOLUME (BEAKER) 10.8 fL 9.4-12.3 (test code = 754) NUCLEATED RED BLOOD CELLS 0 /100 WBC 0-0 (BEAKER) (test code = 413) NEUTROPHILS RELATIVE PERCENT 63 % (BEAKER) (test code = 429) LYMPHOCYTES RELATIVE PERCENT 27 % (BEAKER) (test code = 430) MONOCYTES RELATIVE PERCENT 9 % (BEAKER) (test code = 431) EOSINOPHILS RELATIVE PERCENT 1 % (BEAKER) (test code = 432) BASOPHILS RELATIVE PERCENT 1 % (BEAKER) (test code = 437) NEUTROPHILS ABSOLUTE COUNT 3.47 K/ L 1.56-6.13 (BEAKER) (test code = 670) LYMPHOCYTES ABSOLUTE COUNT 1.49 K/ L 1.18-3.74 (BEAKER) (test code = 414) MONOCYTES ABSOLUTE COUNT (BEAKER) 0.47 K/ L 0.24-0.36 H (test code = 415) EOSINOPHILS ABSOLUTE COUNT 0.06 K/ L 0.04-0.36 (BEAKER) (test code = 416) BASOPHILS ABSOLUTE COUNT (BEAKER) 0.04 K/ L 0.01-0.08 (test code = 417) IMMATURE GRANULOCYTES-RELATIVE 0 % 0-1 PERCENT (BEAKER) (test code = 2801) [id number] 16:02:00 Test Item Value Reference Range Interpretation Comments LIPASE (BEAKER) (test code = 749) 36 U/L 8-78 Barrel Straightener ID - ROSIANGBASIC METABOLIC [id number] 16:02:00 Test Item Value Reference Range Interpretation Comments SODIUM (BEAKER) 136 meq/L 136-145 (test code = 381) POTASSIUM (BEAKER) 3.8 meq/L 3.5-5.1 Specimen slightly (test code = 379) hemolyzed CHLORIDE (BEAKER) 103 meq/L 98-107 (test code = 382) CO2 (BEAKER) (test 18 meq/L 22-29 L code = 355) BLOOD UREA NITROGEN 10 mg/dL 7-21 (BEAKER) (test code = 354) CREATININE (BEAKER) 0.87 mg/dL 0.57-1.25 Specimen slightly (test code = 358) hemolyzed GLUCOSE RANDOM 53 mg/dL 70-105 L (BEAKER) (test code = 652) CALCIUM (BEAKER) 9.2 mg/dL 8.4-10.2 (test code = 697) EGFR (BEAKER) (test 80 mL/min/1.73 ESTIMA [place]AL[place] GFR IS code = 1092) sq m NOT ACCURATE CREATININE CLEARANCE IN PREDICTING GLOMERULAR FILTRATION RATE . ESTIMATED GFR I S NOT APPLICABLE FOR DIALYSIS PATIEN TS. Barrel Straightener ID - ROSIANEPATIC FUNCTION [id number] 16:02:00 Test Item Value Reference Range Interpretation Comments TOTAL PROTEIN (BEAKER) 7.2 gm/dL 6.0-8.3 Speci men slightly (test code = 770) hemolyzed ALBUMIN (BEAKER) (test 4.2 g/dL 3.5-5.0 Speci men slightly code = 1145) hemolyzed BILIRUBIN TOTAL 0.5 mg/dL 0.2-1.2 Specimen sli ghtly (BEAKER) (test code = hemoly zed 377) BILIRUBIN DIRECT 0.3 mg/dL 0.1-0.5 Specimen sl ightly (BEAKER) (test code = hemoly zed 706) ALKALINE PHOSPHATASE 71 U/L 40-150 (BEAKER) (test code = 346) AST (SGOT) (BEAKER) 30 U/L 5-34 Specimen slightly (test code = 353) hemolyzed ALT (SGPT) (BEAKER) 15 U/L 6-55 Specimen slightly (test code = 347) hemolyzed Barrel Straightener ID - ROSIANGURINALYSIS W/ REFLEX URINE [id number] 16:01:00 Test Item Value Reference Range Interpretation Comments COLOR (BEAKER) (test code = 470) Yellow CLARITY (BEAKER) (test code = 469) Clear SPECIFIC GRAVITY UA (BEAKER) (test 1.018 1.001-1.035 code = 468) PH UA (BEAKER) (test code = 467) 5.0 5.0-8.0 PROTEIN UA (BEAKER) (test code = 10 mg/dL Negative A 464) GLUCOSE UA (BEAKER) (test code = Negative Negative 365) KETONES UA (BEAKER) (test code = >150 mg/dL Negative A 371) BILIRUBIN UA (BEAKER) (test code = Negative Negative 462) BLOOD UA (BEAKER) (test code = Negative Negative 461) NITRITE UA (BEAKER) (test code = Negative Negative 465) LEUKOCYTE ESTERASE UA (BEAKER) Negative Negative (test code = 466) UROBILINOGEN UA (BEAKER) (test 0.2 mg/dL 0.2-1.0 code = 463) RBC UA (BEAKER) (test code = 519) < /HPF WBC UA (BEAKER) (test code = 520) 1 /HPF BACTERIA (BEAKER) (test code = Occasional 517) MUCUS (BEAKER) (test code = 1574) Rare SQUAMOUS EPITHELIAL (BEAKER) (test < /HPF code = 516) HYALINE CASTS (BEAKER) (test code 3 /LPF = 514) CRYSTALS, URINE (BEAKER) (test Rare code = 1521) SOURCE(BEAKER) (test code = 2795) Barrel Straightener ID - [auto]Barrel Straightener ID - hankPREGNANCY SCREEN, [id number] 16:01:00 Test Item Value Reference Range Interpretation Comments TEST URINE (BEAKER) (test Negative code = 583) CBC W/PLT COUNT & AUTO [id number] 15:46:00 Test Item Value Reference Range Interpretation Comments WHITE BLOOD CELL COUNT (BEAKER) 6.5 K/ L 3.5-10.5 (test code = 775) RED BLOOD CELL COUNT (BEAKER) 4.15 M/ L 3.93-5.22 (test code = 761) HEMOGLOBIN (BEAKER) (test code = 12.7 GM/DL 11.2-15.7 410) HEMATOCRIT (BEAKER) (test code = 36.6 % 34.1-44.9 411) MEAN CORPUSCULAR VOLUME (BEAKER) 88.2 fL 79.4-94.8 (test code = 753) MEAN CORPUSCULAR HEMOGLOBIN 30.6 pg 25.6-32.2 (BEAKER) (test code = 751) MEAN CORPUSCULAR HEMOGLOBIN CONC 34.7 GM/DL 32.2-35.5 (BEAKER) (test code = 752) RED CELL DISTRIBUTION WIDTH 11.4 % 11.7-14.4 L (BEAKER) (test code = 412) PLATELET COUNT (BEAKER) (test 258 K/CU MM 150-450 code = 756) MEAN PLATELET VOLUME (BEAKER) 10.6 fL 9.4-12.3 (test code = 754) NUCLEATED RED BLOOD CELLS 0 /100 WBC 0-0 (BEAKER) (test code = 413) NEUTROPHILS RELATIVE PERCENT 67 % (BEAKER) (test code = 429) LYMPHOCYTES RELATIVE PERCENT 24 % (BEAKER) (test code = 430) MONOCYTES RELATIVE PERCENT 8 % (BEAKER) (test code = 431) EOSINOPHILS RELATIVE PERCENT 1 % (BEAKER) (test code = 432) BASOPHILS RELATIVE PERCENT 1 % (BEAKER) (test code = 437) NEUTROPHILS ABSOLUTE COUNT 4.33 K/ L 1.56-6.13 (BEAKER) (test code = 670) LYMPHOCYTES ABSOLUTE COUNT 1.53 K/ L 1.18-3.74 (BEAKER) (test code = 414) MONOCYTES ABSOLUTE COUNT (BEAKER) 0.52 K/ L 0.24-0.36 H (test code = 415) EOSINOPHILS ABSOLUTE COUNT 0.04 K/ L 0.04-0.36 (BEAKER) (test code = 416) BASOPHILS ABSOLUTE COUNT (BEAKER) 0.05 K/ L 0.01-0.08 (test code = 417) IMMATURE GRANULOCYTES-RELATIVE 0 % 0-1 PERCENT (BEAKER) (test code = 2801) [id number] 13:36:00 Test Item Value Reference Range Interpretation Comments LIPASE (BEAKER) (test code = 749) 41 U/L 8-78 [id number] 13:36:00 Test Item Value Reference Range Interpretation Comments AMYLASE (BEAKER) (test code = 349) 80 U/L 25-125 BASIC METABOLIC [id number] 13:36:00 Test Item Value Reference Range Interpretation Comments SODIUM (BEAKER) 140 meq/L 136-145 (test code = 381) POTASSIUM (BEAKER) 4.0 meq/L 3.5-5.1 (test code = 379) CHLORIDE (BEAKER) 109 meq/L 98-107 H (test code = 382) CO2 (BEAKER) (test 24 meq/L 22-29 code = 355) BLOOD UREA NITROGEN 20 mg/dL 7-21 (BEAKER) (test code = 354) CREATININE (BEAKER) 0.78 mg/dL 0.57-1.25 (test code = 358) GLUCOSE RANDOM 81 mg/dL 70-105 (BEAKER) (test code = 652) CALCIUM (BEAKER) 9.3 mg/dL 8.4-10.2 (test code = 697) EGFR (BEAKER) (test 92 mL/min/1.73 ESTIMA [place] GFR IS code = 1092) sq m NOT ACCURATE CREATININE CLEARANCE IN PREDICTING GLOMERULAR FILTRATION RATE . ESTIMATED GFR I S NOT APPLICABLE FOR DIALYSIS PATIEN TS. HEPATIC FUNCTION [id number] 13:36:00 Test Item Value Reference Range Interpretation Comments TOTAL PROTEIN (BEAKER) (test code = 6.5 gm/dL 6.0-8.3 770) ALBUMIN (BEAKER) (test code = 1145) 4.0 g/dL 3.5-5.0 BILIRUBIN TOTAL (BEAKER) (test code 0.3 mg/dL 0.2-1.2 = 377) BILIRUBIN DIRECT (BEAKER) (test 0.2 mg/dL 0.1-0.5 code = 706) ALKALINE PHOSPHATASE (BEAKER) (test 73 U/L 40-150 code = 346) AST (SGOT) (BEAKER) (test code = 17 U/L 5-34 353) ALT (SGPT) (BEAKER) (test code = 12 U/L 6-55 347) URINALYSIS W/ REFLEX URINE [id number] 13:20:00 Test Item Value Reference Range Interpretation Comments COLOR (BEAKER) (test code = 470) Yellow CLARITY (BEAKER) (test code = 469) Hazy SPECIFIC GRAVITY UA (BEAKER) (test 1.030 1.001-1.035 code = 468) PH UA (BEAKER) (test code = 467) 5.5 5.0-8.0 PROTEIN UA (BEAKER) (test code = 20 mg/dL Negative A 464) GLUCOSE UA (BEAKER) (test code = Negative Negative 365) KETONES UA (BEAKER) (test code = 20 mg/dL Negative A 371) BILIRUBIN UA (BEAKER) (test code = Negative Negative 462) BLOOD UA (BEAKER) (test code = 461) Negative Negative NITRITE UA (BEAKER) (test code = Negative Negative 465) LEUKOCYTE ESTERASE UA (BEAKER) Negative Negative (test code = 466) UROBILINOGEN UA (BEAKER) (test code 2.0 mg/dL 0.2-1.0 H = 463) RBC UA (BEAKER) (test code = 519) 9 /HPF WBC UA (BEAKER) (test code = 520) 1 /HPF MUCUS (BEAKER) (test code = 1574) Moderate SQUAMOUS EPITHELIAL (BEAKER) (test 3 /HPF code = 516) CALCIUM OXALATE CRYSTALS (BEAKER) Many (test code = 518) AMORPHOUS CRYSTALS (BEAKER) (test Rare code = 1584) SOURCE(BEAKER) (test code = 2795) SCREEN, [id number] 12:46:00 Test Item Value Reference Range Interpretation Comments TEST URINE (BEAKER) (test Negative code = 583) CBC W/PLT COUNT & AUTO [id number] 12:28:00 Test Item Value Reference Range Interpretation Comments WHITE BLOOD CELL COUNT (BEAKER) 5.7 K/ L 3.5-10.5 (test code = 775) RED BLOOD CELL COUNT (BEAKER) 3.94 M/ L 3.93-5.22 (test code = 761) HEMOGLOBIN (BEAKER) (test code = 12.1 GM/DL 11.2-15.7 410) HEMATOCRIT (BEAKER) (test code = 35.8 % 34.1-44.9 411) MEAN CORPUSCULAR VOLUME (BEAKER) 90.9 fL 79.4-94.8 (test code = 753) MEAN CORPUSCULAR HEMOGLOBIN 30.7 pg 25.6-32.2 (BEAKER) (test code = 751) MEAN CORPUSCULAR HEMOGLOBIN CONC 33.8 GM/DL 32.2-35.5 (BEAKER) (test code = 752) RED CELL DISTRIBUTION WIDTH 12.5 % 11.7-14.4 (BEAKER) (test code = 412) PLATELET COUNT (BEAKER) (test 292 K/CU MM 150-450 code = 756) MEAN PLATELET VOLUME (BEAKER) 11.6 fL 9.4-12.3 (test code = 754) NUCLEATED RED BLOOD CELLS 0 /100 WBC 0-0 (BEAKER) (test code = 413) NEUTROPHILS RELATIVE PERCENT 68 % (BEAKER) (test code = 429) LYMPHOCYTES RELATIVE PERCENT 22 % (BEAKER) (test code = 430) MONOCYTES RELATIVE PERCENT 9 % (BEAKER) (test code = 431) EOSINOPHILS RELATIVE PERCENT 1 % (BEAKER) (test code = 432) BASOPHILS RELATIVE PERCENT 1 % (BEAKER) (test code = 437) NEUTROPHILS ABSOLUTE COUNT 3.88 K/ L 1.56-6.13 (BEAKER) (test code = 670) LYMPHOCYTES ABSOLUTE COUNT 1.25 K/ L 1.18-3.74 (BEAKER) (test code = 414) MONOCYTES ABSOLUTE COUNT (BEAKER) 0.51 K/ L 0.24-0.36 H (test code = 415) EOSINOPHILS ABSOLUTE COUNT 0.04 K/ L 0.04-0.36 (BEAKER) (test code = 416) BASOPHILS ABSOLUTE COUNT (BEAKER) 0.05 K/ L 0.01-0.08 (test code = 417) IMMATURE GRANULOCYTES-RELATIVE 0 % 0-1 PERCENT (BEAKER) (test code = 4913)
[2023-01-02 13:27] LABS: Absolute Lymphocytes (CBC) 1.9 K/uL (0.7-4.9); Hematocrit 37.9 % (36.0-45.0); MCV 86.7 fL (80-100); MPV 7.9 fL (7.6-11.3); RBC Red Blood Cell Count 4.36 M/uL (3.86-4.86)
[2023-01-02 13:31] LABS: Urine Blood Negative (Negative); Urine Glucose Negative (Negative); Urine Protein Negative (Negative)
[2023-01-02 13:36] LABS: Potassium 3.6 mmol/L (3.5-5.1); Troponin High Sensitivity 7.3 pg/mL (<58.9)
[2023-01-02] MEDS ORDERED: CODEINE 30MG/APAP 300MG TAB ONE (13:37)
[2023-01-02 13:45] LABS: Barbiturates NEGATIVE (NEGATIVE); Benzodiazepines NEGATIVE (NEGATIVE); Cocaine NEGATIVE (NEGATIVE); METHAMPHETAM POSITIVE (NEGATIVE); Methadone NEGATIVE (NEGATIVE); Opiates NEGATIVE (NEGATIVE); Phencyclidine NEGATIVE (NEGATIVE); THC Cannibis NEGATIVE (NEGATIVE)
[2023-01-02 14:08] LABS: SARS-COV-2 RT PCR NEGATIVE (NEGATIVE)
--- NOTE | 2023-01-02 14:11 | ER ---
Nurse's Notes [facility] Name: Annia Linda Age: 27 yrs Sex: Female : 1995 Arrival Date: 01/02/2023 Time: 12:39 Bed 16 Private MD: Diagnosis: Acute bronchitis, unspecified;Pleurisy;Palpitations Presentation: 01/02 12:46 Chief complaint: Patient states: she has been having pain under her right breast for a ap3 few weeks now that is exaggerated with deep breathing, coughing, sneezing, laying down, or changing positions. Patient reports seeing her PCP recently and being dx with bronchitis. patient also states that her HR has been "going up and down a lot over the last week and a half". Patient states a night her HR will be in the 50's and when she gets up in the morning it is in the 130s. Coronavirus screen: At this time, the client does not indicate any symptoms associated with coronavirus-19. Ebola Screen: No symptoms or risks identified at this time. Initial Sepsis Screen: Does the patient meet any 2 criteria? HR > 90 bpm. Does the patient have a suspected source of infection? No. Patient's initial sepsis screen is negative. Risk Assessment: Do you want to hurt yourself or someone else? Patient reports no desire to harm self or others. Onset of symptoms was December 2022. 12:46 Method Of Arrival: Ambulatory ap3 12:46 Acuity: ALFONZO 3 ap3 Triage Assessment: 12:49 General: Appears in no apparent distress. Behavior is cooperative, appropriate for age. ap3 Pain: Complains of pain in right breast Aggravated by repositioning, coughing, sneezing, laying down and deep breathing. Neuro: Level of Consciousness is awake, alert, obeys commands, Oriented to person, place, time, situation. Cardiovascular: Patient's skin is warm and dry. Respiratory: Reports cough that is dry, Airway is patent Respiratory effort is even, unlabored, Respiratory pattern is regular, symmetrical. ORACLE SOLUTIONS ARCHITECT: 12:51 LMP N/A - control method ap3 Historical: - Allergies: 12:49 No Known Allergies; ap3 - PMHx: 12:49 Bipolar disorder; Major Depressive Disorder; ap3 - Immunization history:: Client reports receiving the 2nd dose of the Covid vaccine, Flu vaccine is not up to date. - Social history:: Smoking status: Reported history of juuling and/or vaping. - Family history:: not pertinent. - Hospitalizations: : No recent hospitalization is reported. Screenin:50 [facility] ED Fall Risk Assessment (Adult) History of falling in the last 3 months, ap3 including since admission No falls in past 3 months (0 pts). Abuse screen: Denies threats or abuse. Nutritional screening: No deficits noted. Tuberculosis screening: No symptoms or risk factors identified. Assessment: 13:30 Reassessment: Patient appears in no apparent distress at this time. Patient and/or db family updated on plan of care and expected duration. Pain level reassessed. Patient is alert, oriented x 3, equal unlabored respirations, skin warm/dry/pink. chest pain with palpitations x 2 weeks that comes and goes. General: Appears in no apparent distress. comfortable, Behavior is calm, cooperative. Pain: Pain radiates to chest Pain currently is 6 out of 10 on a pain scale. Pain began 2 weeks. Neuro: Level of Consciousness is awake, alert, obeys commands, Oriented to person, place, time, situation. Cardiovascular: Capillary refill < 3 seconds Rhythm is sinus tachycardia. Respiratory: No deficits noted. Airway is patent Respiratory effort is even, labored, Respiratory pattern is regular, symmetrical. 14:14 Reassessment: Patient appears in no apparent distress at this time. Patient and/or db family updated on plan of care and expected duration. Pain level reassessed. Patient is alert, oriented x 3, equal unlabored respirations, skin warm/dry/pink. Patient denies pain at this time. Patient states feeling better. 14:29 Reassessment: Patient appears in no apparent distress at this time. Patient and/or db family updated on plan of care and expected duration. Pain level reassessed. Patient is alert, oriented x 3, equal unlabored respirations, skin warm/dry/pink. Vital Signs: 12:46 Pulse 112; Resp 18; Temp 99.0; Pulse Ox 100% ; Weight 99.79 kg; Height 5 ft. 8 in. ap3 (172.72 cm); 12:50 BP 131 / 84; ap3 13:30 BP 118 / 85; Pulse 91; Resp 18; Pulse Ox 100% on R/A; db 14:00 BP 136 / 88; Pulse 95; Resp 18; Pulse Ox 100% on R/A; db 12:46 Body Mass Index 33.45 (99.79 kg, 172.72 cm) ap3 Vitals: 14:00 Cardiac Rhythm Assessment Regular Sinus rhythm. db ED Course: 12:39 Patient arrived in ED. am2 12:48 Michele Brink MD is Attending Physician. sp4 12:49 Triage completed. ap3 12:50 Arm band placed on right wrist. ap3 12:50 Patient maintains SpO2 saturation greater than 95% on room air. ap3 12:54 Ashia Taylor, RN is Primary Nurse. db 13:31 Urine collected: clean catch specimen, clear. tm3 13:44 XRAY Chest (1 view) In Process Unspecified. EDMS 14:14 Patient has correct armband on for positive identification. Placed in gown. Bed in low db position. Call light in reach. Side rails up X 1. Client placed on continuous cardiac and pulse oximetry monitoring. NIBP monitoring applied. Warm blanket given. 14:29 No provider procedures requiring assistance completed. IV discontinued, intact, db bleeding controlled, No redness/swelling at site. Administered Medications: 13:36 Drug: Tylenol #3 (300 mg-30 mg) 2 tabs Route: PO; db 14:14 Follow up: Response: No adverse reaction; Pain is decreased db Medication: 14:14 VIS not applicable for this client. db Outcome: 14:10 Discharge ordered by . sp4 14:29 Discharged to home ambulatory. db 14:29 Condition: stable 14:29 Discharge instructions given to patient, Instructed on discharge instructions, follow up and referral plans. Prescriptions given X 1. 14:36 Patient left the ED. db Signatures: Dispatcher [employer] EDMA Blas White tm3 Annia Carballo am2 Annia Piper RN RN ap3 Ashia Taylor, RN RN db Michele Brink MD MD sp4
--- NOTE | 2023-01-02 14:11 | EDPHYS ---
Physician Documentation [facility] Name: Annia Linda Age: 27 yrs Sex: Female : 1995 Arrival Date: 01/02/2023 Time: 12:39 Bed 16 Private MD: ED Physician Michele Brink HPI: 01/02 12:55 This 27 yrs old Female presents to ER via Ambulatory with complaints of Chest Pain, sp4 Shortness Of Breath, heart rate fluctuating. 12:55 27 year old female presents with chest pain, dyspnea, and palpitations.. sp4 13:32 Patient states she started with cough , Symptoms started 2 weeks ago, There is cough, sp4 green sputum, chest wall pain with cough and deep inspiration, also palpitations . Patient was given PO Methylprednisolone and PO Zithromax and her symptoms have improved somewhat. But she still is having chest discomfort with cough. . 13:40 Associated signs and symptoms: Pertinent positives: cough, palpitations, shortness of sp4 breath. The chest pain is described as aching. Modifying factors: the symptoms are aggravated by breathing, cough. Severity of pain: in the emergency department the pain is unchanged. The patient has been recently seen by a physician: the patient's primary care provider. . RFID SPECIALIST: 12:51 LMP N/A - control method ap3 Historical: - Allergies: 12:49 No Known Allergies; ap3 - PMHx: 12:49 Bipolar disorder; Major Depressive Disorder; ap3 - Immunization history:: Client reports receiving the 2nd dose of the Covid vaccine, Flu vaccine is not up to date. - Social history:: Smoking status: Reported history of juuling and/or vaping. - Family history:: not pertinent. - Hospitalizations: : No recent hospitalization is reported. ROS: 13:40 Constitutional: Negative for fever, chills, and weight loss, Eyes: Negative for injury, sp4 pain, redness, and discharge, ENT: Negative for injury, pain, and discharge, Neck: Negative for injury, pain, and swelling. 13:40 Abdomen/GI: Negative for abdominal pain, nausea, vomiting, diarrhea, and constipation, Back: Negative for injury and pain, : Negative for injury, bleeding, discharge, and swelling, MS/Extremity: Negative for injury and deformity, Skin: Negative for injury, rash, and discoloration, Neuro: Negative for headache, weakness, numbness, tingling, and seizure, Psych: Negative for depression, anxiety, suicide ideation, homicidal ideation, and hallucinations, Allergy/Immunology: Negative for hives, rash, and allergies, Endocrine: Negative for neck swelling, polydipsia, polyuria, polyphagia, and marked weight changes, Hematologic/Lymphatic: Negative for swollen nodes, abnormal bleeding, and unusual bruising. 13:40 Cardiovascular: Positive for chest pain, palpitations, dyspnea, cough , Negative for edema, orthopnea, paroxysmal nocturnal dyspnea. 13:40 Respiratory: Positive for cough, pleurisy, Negative for dyspnea on exertion, hemoptysis, orthopnea, wheezing. Exam: 13:49 Constitutional: This is a well developed, well nourished patient who is awake, alert, sp4 and in no acute distress. Head/Face: Normocephalic, atraumatic. Eyes: Pupils equal round and reactive to light, extra-ocular motions intact. Lids and lashes normal. Conjunctiva and sclera are non-icteric and not injected. Cornea within normal limits. Periorbital areas with no swelling, redness, or edema. ENT: Nares patent. No nasal discharge, no septal abnormalities noted. Tympanic membranes are normal and external auditory canals are clear. Oropharynx with no redness, swelling, or masses, exudates, or evidence of obstruction, uvula midline. Mucous membranes moist. Neck: Trachea midline, no thyromegaly or masses palpated, and no cervical lymphadenopathy. Supple, full range of motion without nuchal rigidity, or vertebral point tenderness. No Meningismus. Chest/axilla: Normal chest wall appearance and motion. Nontender with no deformity. No lesions are appreciated. Cardiovascular: Regular rate and rhythm with a normal S1 and S2. No gallops, murmurs, or rubs. Normal PMI, no JVD. No pulse deficits. Respiratory: Lungs have equal breath sounds bilaterally, clear to auscultation and percussion. No rales, rhonchi or wheezes noted. No increased work of breathing, no retractions or nasal flaring. Abdomen/GI: Soft, non-tender, with normal bowel sounds. No distension or tympany. No guarding or rebound. No evidence of tenderness throughout. Back: No spinal tenderness. No costovertebral tenderness. Full range of motion. Pelvic Exam: Normal external genitalia. Speculum exam with closed cervical os, no discharge or bleeding noted. Bimanual exam with normal adnexa, no adnexal or cervical motion tenderness. Normal uterus. Skin: Warm, dry with normal turgor. Normal color with no rashes, no lesions, and no evidence of cellulitis. MS/ Extremity: Pulses equal, no cyanosis. Neurovascular intact. Full, normal range of motion. Neuro: Awake and alert, GCS 15, oriented to person, place, time, and situation. Cranial nerves II-XII grossly intact. Motor strength 5/5 in all extremities. Sensory grossly intact. Cerebellar exam normal. Normal gait. Psych: Awake, alert, with orientation to person, place and time. Behavior, mood, and affect are within normal limits. 13:57 ECG was reviewed by the Attending Physician. sp4 Vital Signs: 12:46 Pulse 112; Resp 18; Temp 99.0; Pulse Ox 100% ; Weight 99.79 kg; Height 5 ft. 8 in. ap3 (172.72 cm); 12:50 BP 131 / 84; ap3 13:30 BP 118 / 85; Pulse 91; Resp 18; Pulse Ox 100% on R/A; db 14:00 BP 136 / 88; Pulse 95; Resp 18; Pulse Ox 100% on R/A; db 12:46 Body Mass Index 33.45 (99.79 kg, 172.72 cm) ap3 MDM: 12:49 Patient medically screened. sp4 13:49 Differential diagnosis: acute pericarditis, anxiety, chest wall pain, costochondritis, sp4 gastroesophageal reflux disease (GERD), mitral valve prolapse, myocarditis, peptic ulcer disease, pericarditis, pleurisy, pneumonia, pneumothorax, stable angina. 14:11 HEART Score: History: Slightly Suspicious (0), ECG: Normal (0), Age: < or = 45 years sp4 (0), Risk Factors: No Risk Factors Known (0), Troponin: Total Score = 0. Data reviewed: vital signs, nurses notes, old medical records, lab test result(s), Beta HCG: cardiac enzymes, CBC, Flu: urine drug screen, UPT: EKG, radiologic studies, plain films. Independent interpretation of the following test(s) in the Emergency Department EKG: See my EKG interpretation above. ED course: Patient is improved and is stable for discharge home . 14:34 ED course: 27-year-old female presents to the ER with pleuritic chest pain for 2 weeks, sp4 patient was evaluated with cardiac labs and EKG. cardiac work-up was negative today. Patient is stable for discharge home with the instructions for the management of acute bronchitis associated with pleuritic chest pain. She was advised to see her primary MD in 7 to 10 days. Patient is also in the process of completing her thyroid screening at [facility]. Patient was advised to finish her thyroid screening. Incidentally patient is positive for methamphetamines which may be the cause of her palpitations. Will advise to the patient to discontinue methamphetamine use. . 01/02 12:50 Order name: Basic Metabolic Panel; Complete Time: 13:56 4 01/02 12:50 Order name: CBC with Diff; Complete Time: 14:37 sp4 01/02 12:50 Order name: Troponin HS; Complete Time: 13:56 4 01/02 12:50 Order name: XRAY Chest (1 view); Complete Time: 14:20 sp4 01/02 12:50 Order name: EKG; Complete Time: 12:51 sp4 01/02 12:50 Order name: Cardiac monitoring; Complete Time: 13:14 sp4 01/02 12:50 Order name: EKG - Nurse/Tech; Complete Time: 13:38 sp4 01/02 12:50 Order name: IV Saline Lock; Complete Time: 13:14 sp4 01/02 12:50 Order name: Labs collected and sent; Complete Time: 13:14 4 01/02 12:50 Order name: O2 Per Protocol; Complete Time: 13:14 sp4 01/02 12:50 Order name: O2 Sat Monitoring; Complete Time: 13:42 sp4 01/02 12:52 Order name: Urine Test (obtain specimen); Complete Time: 13:24 sp4 01/02 12:52 Order name: Urine Drug Screen; Complete Time: 13:56 sp4 01/02 13:06 Order name: COVID-19/FLU A+B; Complete Time: 14:20 sp4 01/02 13:31 Order name: Urine Dipstick-Ancillary; Complete Time: 13:56 EDMO 01/02 13:33 Order name: Urine --Ancillary (enter results); Complete Time: 13:56 bd 01/02 14:34 Order name: CBC Smear Scan; Complete Time: 14:37 EDMS EC:57 Rate is 94 beats/min. Rhythm is regular. QRS [place] is Normal. GA interval is normal. QRS sp4 interval is normal. QT interval is normal. T waves are Normal. No ST changes noted. Clinical impression: No evidence of ischemia. Interpreted by me. Reviewed by me. Administered Medications: 13:36 Drug: Tylenol #3 (300 mg-30 mg) 2 tabs Route: PO; db 14:14 Follow up: Response: No adverse reaction; Pain is decreased db Disposition Summary: 01/02/23 14:10 Discharge Ordered Location: Home sp4 Condition: Stable sp4 Diagnosis - Acute bronchitis, unspecified sp4 - Pleurisy sp4 - Palpitations sp4 Followup: sp4 - With: Private Physician - When: 7 - 10 days - Reason: Discharge Instructions: - Discharge Summary Sheet ss - Pleurisy, [id number] sp4 Forms: - Work release form ss - Medication Reconciliation Form sp4 - Thank You Letter sp4 - Antibiotic Education sp4 - Prescription Opioid Use sp4 Prescriptions: - Cephalexin 500 mg Oral Capsule - take 1 capsule by ORAL route every 12 hours for 10 days; 20 capsule; Refills: sp4 0, Product Selection Permitted Signatures: Dispatcher [employer] Annia Lara RN RN ap3 Ashia Taylor RN RN Michele Robertson MD MD sp4 Corrections: (The following items were deleted from the chart) 13:43 13:32 Patient states she started with cough . sp4 sp4
--- NOTE | 2023-01-02 14:14 | RAD REPORT ---
EXAM DESCRIPTION: RAD - Chest Single View - 01/02/2023 1:43 pm CLINICAL HISTORY: CHEST PAIN COMPARISON: No comparisons FINDINGS: Lines: None. Lungs: No evidence of edema or pneumonia. Pleural: No significant pleural effusions or pneumothorax. Cardiac: The heart size is within normal limits. Mediastinum: Within normal limits. Bones: No acute fractures. Other: None IMPRESSION: No acute cardiopulmonary disease.
[2023-01-02 14:34] LABS: Blood Morphology Comment NOT SEEN (NOT SEEN); Platelet Estimate ADEQ; White Blood Cell Scan OK (OK)
[2023-01-02 14:50] VITALS: TEMP 99; O2SAT 100
[2023-01-02 14:54] VITALS: BP 136/88
--- NOTE | 2023-01-03 11:17 | EKG ---
Test Date: 2023-01-02 Test Time: 13:17:31 Textile Supervisor: LUDMILA MEASUREMENT RESULTS: Intervals: Rate: 106 DC: 144 QRSD: 98 QT: 340 QTc: 451 [place]: P: 78 DC: 144 QRS: 90 T: 36 INTERPRETIVE STATEMENTS: Sinus tachycardia Rightward axis Borderline ECG Compared to ECG 01/02/2023 13:16:52 Sinus rhythm no longer present Electronically Signed On 01-03-23 11:15:17 ELECTRICAL ASSEMBLIES SUPERVISOR by Trevor Duke
--- NOTE | 2023-01-03 11:17 | EKG ---
Test Date: 2023-01-02 Test Time: 13:16:52 Wrecking Supervisor: LUDMILA MEASUREMENT RESULTS: Intervals: Rate: 94 CO: 142 QRSD: 84 QT: 334 QTc: 417 [place]: P: 76 CO: 142 QRS: 90 T: 45 INTERPRETIVE STATEMENTS: Normal sinus rhythm Rightward axis Borderline ECG Compared to ECG 12/05/2016 14:42:37 Right-axis deviation now present Sinus tachycardia no longer present T-wave abnormality no longer present Possible ischemia no longer present Electronically Signed On 01-03-23 11:15:20 ASSOCIATE PROFESSOR OF LITERATURE by Trevor Duke
== END 2023-01-02 14:36 | disposition home or self-care (01) ==
LOC: ER 12:34
DX: J20.9 Acute bronchitis, unspecified (principal); R00.2 Palpitations; F31.9 Bipolar disorder, unspecified; Z20.822 Contact with and (suspected) exposure to COVID-19
CPT/HCPCS: 93005 ×2; 85025; 80048; 36415; 81025; 81003; 84484; 0240U; 80307; 71045; 99285

== ENCOUNTER 2023-07-24 15:23 | Emergency (ER) | payer BC, OTHER ==
--- OUTSIDE RECORDS SUMMARY | 2023-07-24 15:29 | XMS REPORT | Continuity of Care Document ---
:1995 Author Organization [facility] t Address [address] [facility] [place] [place] [address] Care Team Providers Name Role Phone Chris Modi Primary Care Physician LUIS BUCIO Attending Clinician Unavailable RASHEED GARY Attending Clinician Unavailable AFSANEH VALLEJO Attending Clinician Unavailable LAB90 Attending Clinician Unavailable TEQUILA RHODES Attending Clinician Unavailable MARIELY VILLA Attending Clinician Unavailable ERICKSON CURRY Attending Clinician Unavailable LAB53 Attending Clinician Unavailable RAFY DEVINE Attending Clinician Unavailable TERESA WILBURN Attending Clinician Unavailable MD VIVEK Attending Clinician Unavailable JULIO BRYAN Attending Clinician Unavailable LAB47 Attending Clinician Unavailable PL, TECH 1 Attending Clinician Unavailable 39, HOLTER Attending Clinician Unavailable SUMIT AVILA Attending Clinician Unavailable KARINA KO Attending Clinician Unavailable NATHALIE ZAMUDIO Attending Clinician Unavailable STEPHEN HUFF Attending Clinician Unavailable JOZEF FARMER Attending Clinician Unavailable TRED47 Attending Clinician Unavailable CONCHITA WELLS Attending Clinician Unavailable ALAINA JONES MEDICAL Attending Clinician UnavailJATIN Kamara Attending Clinician Unavailable SUKHWINDER MATHIS Attending Clinician Unavailable KENDALL VILLATORO Attending Clinician Unavailable ANNA COVINGTON Attending Clinician Unavailable Payers Payer Name Policy Type Policy Number Effective Date Expiration Date S ource BCBS OF P [id number] [facility] G[employer] 16 [id number] 2023 HMO-POS 00:00:00 AETNA MP CVS 9 [id number] 2022 SILVER $30 [id number] 00:00:00 BASIC 87 BCBS ADV O [id number] 2018 EXCHANGE 00:00:00 Problems Condition Condition Condition Status Onset Resolution Last Treating Co mments Source Name Details Category Date Date Treatment Clinician Date Snoring Snoring Disease Active Alaina 7-27 Seybold 00:00: - 00 Externa l Abnormal Abnormal Disease Active Kelse y TSH TSH 7-27 Seybold 00:00: - 00 Externa l Palpitatio Palpitatio Disease Active K elsey ns ns 4-12 Seybold 00:00: - 00 Externa l Mild Mild Disease Active Alaina intermitte intermitte 4-12 Se ybold nt asthma nt asthma 00:00: - without without 00 Externa complicati complicati l on on Smoker Smoker Disease Active Alaina 4-12 Seybold 00:00: - 00 Externa l Morbid Morbid Disease Active [facility]a obesity obesity 4-06 Seybold 00:00: - 00 Externa l Morbid Morbid [facility] [place] [facility] toxicity toxicity 12[facility] No known No known Disease Kelse y active active Seybold problems problems - Externa l Bipolar Bipolar Disease Active [facility] disorder disorder [facility] Allergies, Adverse Reactions, Alerts Allergy Allergy Status Severity Reaction(s) Onset Inactive Treating Comm ents Source Name Type Date Date Clinician NO KNOWN Allergy Active [facility] Social History Social Habit Start Date Stop Date Quantity Comments Source Gender identity 2023-06-28 Identifies as Alaina Hortonybkat 09:23:24 female gender - External (finding) Sexual orientation 2023-06-28 Heterosexual Ivon walton Seybold 09:23:24 (finding) - External History SDOH [facility] Alcohol Std Drinks [facility] History SDOH [facility] Alcohol Binge Medical Yung ter History SDOH [facility] Alcohol Comment Medical C enter Alcohol intake 2023-06-29 2023-06-29 Current non-drinker Sharon lawson Seybkat 00:00:00 00:00:00 of alcohol - External (finding) Tobacco use and 2023-06-25 2023-06-25 User of smokeless Ke daria Seybold exposure 00:00:00 00:00:00 tobacco - External Tobacco Comment 2023-02-08 2023-02-08 vaping Alaina Horton ybkat 00:00:00 00:00:00 - External History of Social 2022-12-29 2022-12-29 Alaina Hortonybkat function 00:00:00 00:00:00 - External History SDOH 2019-10-16 2019-10-16 1 [facility] Alcohol Frequency 00:00:00 00:00:00 [facility] Sex Assigned At [birth year] F Alaina young 00:00:00 00:00:00 - External Smoking Status Start Date Stop Date Source Never smoked tobacco Alainabishop stephens - External Current every day smoker 2020-08-11 00:00:00 [facility] Medications Ordered Filled Start Stop Current Ordering Indication Dosage Frequency Signature Comments Components Source Medication Medication Date Date Medication? Clinician (SIG) Name Name Amoxicillin Yes [id number] 1{tbl} Take 1 Alaina -Pot 8-26 tablet by Seybold Clavulanate 00:00: mouth 2 - 875-125 MG 00 times Externa oral Tablet daily. l methylPREDN Yes [id number] 1{lacey} Take 1 lacey Alaina ISolone 4 - by mouth Seybol d MG oral 00:00: See Admin - Tablet 00 Instructio Externa Therapy ns Use as l Pack directed. Pantoprazol Yes [id number] 40mg TAKE ONE Alaina e Sodium 40 8-24 (1) TABLET Se ybold MG oral 00:00: (40 MG - Tablet 00 TOTAL) BY Externa Delayed MOUTH l Response DAILY. Pantoprazol Yes [id number] 40mg TAKE ONE Alaina e Sodium 40 8-24 (1) TABLET Se ybold MG oral 00:00: (40 MG - Tablet 00 TOTAL) BY Externa Delayed MOUTH l Response DAILY. Fluconazole 2022- Yes [id number] 150mg Take 1 Alaina (Diflucan) 06-27- tablet Seybol d 150 MG oral 00:00: 04:59 (150 mg - Tablet 00 :00 total) by Externa mouth l every 3 days for 3 doses. Fluconazole 2022- Yes [id number] 150mg Take 1 Alaina (Diflucan) 06-27 tablet Seybol d 150 MG oral 00:00: 04:59 (150 mg - Tablet 00 :00 total) by Externa mouth l every 3 days for 3 doses. Levonorgest 2022- No as Kelse y rel 06-25 directed Seybold (Mirena) 20 09:26: 00:00 Intrauteri - MCG/DAY 45 :00 ne Externa intrauterin l e IUD TERCONAZOLE 2022- Yes [id number] 1{appli Place 1 Alaina VAGINAL 0.4 06-25 cator} applicator Seybold % vaginal 00:00: 04:59 vaginally - Cream 00 :00 nightly Externa for 7 l doses. TERCONAZOLE 2022- Yes [id number] 1{appli Place 1 Alaina VAGINAL 0.4 06-25 cator} applicator Seybold % vaginal 00:00: 04:59 vaginally - Cream 00 :00 nightly Externa for 7 l doses. TERCONAZOLE 2023-0 2023- Yes [id number] 1{appli Place 1 Alaina VAGINAL 0.4 06-25 cator} applicator Seybold % vaginal 00:00: 04:59 vaginally - Cream 00 :00 nightly Externa for 7 l doses. Metoprolol 2023-0 Yes 25mg Take 1 Kelse y Succinate 7-27 tablet (25 Seyb old 25 MG oral 00:00: mg total) - TABLET SR 00 by mouth [employer] Manager a 24 HR daily l Pantoprazol 2023-0 Yes [id number] 40mg Take 1 Alaina e Sodium 40 7-27 tablet (40 Se ybold MG oral 00:00: mg total) - Tablet 00 by mouth Externa Delayed daily l Response Metoprolol 2023-0 Yes 25mg Take 1 Kelse y Succinate 7-27 tablet (25 Seyb old 25 MG oral 00:00: mg total) - TABLET SR 00 by mouth [employer] Manager a 24 HR daily l Metoprolol 2023-0 Yes 25mg Take 1 Kelse y Succinate 7-27 tablet (25 Seyb old 25 MG oral 00:00: mg total) - TABLET SR 00 by mouth [employer] Manager a 24 HR daily l Pantoprazol 2023-0 Yes 40mg Take 1 Ivon ey e Sodium 40 5-15 tablet (40 Se ybold MG oral 08:23: mg total) - Tablet 03 by mouth Externa Delayed daily l Response Pantoprazol 2023-0 Yes 40mg Take 1 Ivon ey e Sodium 40 5-15 tablet (40 Se ybold MG oral 08:23: mg total) - Tablet 03 by mouth Externa Delayed daily l Response Pantoprazol 2023-0 Yes 40mg Take 1 Ivon ey e Sodium 40 5-08 tablet (40 Se ybold MG oral 09:56: mg total) - Tablet 26 by mouth Externa Delayed daily l Response Montelukast 2023-0 Yes [id number] 10mg Take 1 Alaina (Singulair) 5-08 tablet (10 Se ybold 10 MG oral 00:00: mg total) - Tablet 00 by mouth Externa tablet nightly l Montelukast 2023-0 Yes [id number] 10mg Take 1 Alaina (Singulair) 5-08 tablet (10 Se ybold 10 MG oral 00:00: mg total) - Tablet 00 by mouth Externa tablet nightly l Montelukast 2022-0 Yes [id number] 10mg Take 1 Alaina (Singulair) 5-08 tablet (10 Se ybold 10 MG oral 00:00: mg total) - Tablet 00 by mouth Externa tablet nightly l Montelukast 2022-0 Yes [id number] 10mg Take 1 Alaina (Singulair) 5-08 tablet (10 Se ybold 10 MG oral 00:00: mg total) - Tablet 00 by mouth Externa tablet nightly l Montelukast 2022-0 Yes [id number] 10mg Take 1 Alaina (Singulair) 5-08 tablet (10 Se ybold 10 MG oral 00:00: mg total) - Tablet 00 by mouth Externa tablet nightly l Levonorgest 2022-0 2022- No by other K elsey rel 4-25 04-25 route Seybold (Mirena, 52 11:01: 00:00 - MG,) 20 49 :00 Externa MCG/DAY l intrauterin e IUD Levonorgest 0 2022- No by other K elsey rel 4-25 04-25 route Seybold (Mirena, 52 11:01: 00:00 - MG,) 20 49 :00 Externa MCG/DAY l intrauterin e IUD Pantoprazol 2022-0 Yes 40mg Take 1 Ivon ey e Sodium 40 4-25 tablet (40 Se ybold MG oral 10:01: mg total) - Tablet 51 by mouth Externa Delayed daily l Response Pantoprazol 2022-0 Yes 40mg Take 1 Ivon ey e Sodium 40 4-25 tablet (40 Se ybold MG oral 10:01: mg total) - Tablet 51 by mouth Externa Delayed daily l Response FLUTICASONE 2022-0 Yes 50ug Use 1 Kelse y PROPIONATE, 4-25 spray (50 Sey bold NASAL, 00:00: mcg total) - (Flonase 00 in each Externa Allergy nostril 2 l Relief) 50 times MCG/ACT daily nasal Suspension Azelastine 0 Yes 2{spray 2 sprays Alaina HCl 0.1 % 4-25 } by nasal Seybol d nasal 00:00: route 2 - Solution 00 times Externa daily l FLUTICASONE 2022-0 Yes 50ug Use 1 Kelse y PROPIONATE, 4-25 spray (50 Sey bold NASAL, 00:00: mcg total) - (Flonase 00 in each Externa Allergy nostril 2 l Relief) 50 times MCG/ACT daily nasal Suspension Azelastine 2022-0 Yes 2{spray 2 sprays Alaina HCl 0.1 % 4-25 } by nasal Seybol d nasal 00:00: route 2 - Solution 00 times Externa daily l FLUTICASONE 2022-0 Yes 50ug Use 1 Kelse y PROPIONATE, 4-25 spray (50 Sey bold NASAL, 00:00: mcg total) - (Flonase 00 in each Externa Allergy nostril 2 l Relief) 50 times MCG/ACT daily nasal Suspension Azelastine 2022-0 Yes 2{spray 2 sprays Alaina HCl 0.1 % 4-25 } by nasal Seybol d nasal 00:00: route 2 - Solution 00 times Externa daily l FLUTICASONE 2022-0 Yes 50ug Use 1 Kelse y PROPIONATE, 4-25 spray (50 Sey bold NASAL, 00:00: mcg total) - (Flonase 00 in each Externa Allergy nostril 2 l Relief) 50 times MCG/ACT daily nasal Suspension Azelastine 2022-0 Yes 2{spray 2 sprays Al[place]a HCl 0.1 % 4-25 } by nasal Seybol d nasal 00:00: route 2 - Solution 00 times Externa daily l FLUTICASONE 2022-0 Yes 50ug Use 1 Kelse y PROPIONATE, 4-25 spray (50 Sey bold NASAL, 00:00: mcg total) - (Flonase 00 in each Externa Allergy nostril 2 l Relief) 50 times MCG/ACT daily nasal Suspension Azelastine 2022-0 Yes 2{spray 2 sprays Al[place]a HCl 0.1 % 4-25 } by nasal Seybol d nasal 00:00: route 2 - Solution 00 times Externa daily l FLUTICASONE 2022-0 Yes 50ug Use 1 Kelse y PROPIONATE, 4-25 spray (50 Sey bold NASAL, 00:00: mcg total) - (Flonase 00 in each Externa Allergy nostril 2 l Relief) 50 times MCG/ACT daily nasal Suspension Azelastine 2023-0 Yes 2{spray 2 sprays Al[place]a HCl 0.1 % 4-25 } by nasal Seybol d nasal 00:00: route 2 - Solution 00 times Externa daily l FLUTICASONE 2022-0 Yes 50ug Use 1 Kelse y PROPIONATE, 4-25 spray (50 Sey bold NASAL, 00:00: mcg total) - (Flonase 00 in each Externa Allergy nostril 2 l Relief) 50 times MCG/ACT daily nasal Suspension Azelastine Yes 2{spray 2 sprays Al[place]a HCl 0.1 % 4-25 } by nasal Seybol d nasal 00:00: route 2 - Solution 00 times Externa daily l Levonorgest 2022-0 Yes by other Ke lsey rel 4-14 route Seybold (Mirena, 52 14:00: - MG,) 20 11 Externa MCG/DAY l intrauterin e IUD Pantoprazol 0 Yes 40mg Take 1 Ivon ey e Sodium 40 4-14 tablet (40 Se ybold MG oral 14:00: mg total) - Tablet 11 by mouth Externa Delayed daily l Response Levonorgest 2022-0 Yes by other Ke lsey rel 4-06 route Seybold (Mirena, 52 08:45: - MG,) 20 38 Externa MCG/DAY l intrauterin e IUD Pantoprazol 2022-0 Yes 40mg Take 1 Ivon ey e Sodium 40 4-06 tablet (40 Se ybold MG oral 08:45: mg total) - Tablet 38 by mouth Externa Delayed daily l Response Montelukast 2022-0 Yes [id number] 10mg Take 1 Alaina (Singulair) 4-06 tablet (10 Se ybold 10 MG oral 00:00: mg total) - Tablet 00 by mouth Externa tablet nightly l Montelukast 2022-0 Yes [id number] 10mg Take 1 Alaina (Singulair) 4-06 tablet (10 Se ybold 10 MG oral 00:00: mg total) - Tablet 00 by mouth Externa tablet nightly l Montelukast 2022-0 Yes [id number] 10mg Take 1 Alaina (Singulair) 4-06 tablet (10 Se ybold 10 MG oral 00:00: mg total) - Tablet 00 by mouth Externa tablet nightly l Montelukast 2022-0 Yes [id number] 10mg Take 1 Alaina (Singulair) 4-06 tablet (10 Se ybold 10 MG oral 00:00: mg total) - Tablet 00 by mouth Externa tablet nightly l Montelukast 2022-0 Yes [id number] 10mg Take 1 Alaina (Singulair) 4-06 tablet (10 Se ybold 10 MG oral 00:00: mg total) - Tablet 00 by mouth Externa tablet nightly l guaiFENesin 2022-0 Yes [id number] 5mL Q.[id number] Take 5 mL Alaina -Codeine 3-28 [id number] by mouth 3 Seybold 100-10 00:00: 3D times - MG/5ML oral 00 daily as Exte rna Syrup needed for l cough Levonorgest 0 Yes by other Ke lsey rel 3-10 route Seybold (Mirena, 52 14:24: - MG,) 20 19 Externa MCG/DAY l intrauterin e IUD Pantoprazol 2022-0 Yes 1{tbl} Take 1 Ke lsey e Sodium 40 3-10 tablet by Sey bold MG oral 14:24: mouth - Tablet 19 daily Externa Delayed l Response Levonorgest 2022-0 Yes by other Ke lsey rel 3-10 route Seybold (Mirena, 52 14:24: - MG,) 20 19 Externa MCG/DAY l intrauterin e IUD Pantoprazol 2022-0 Yes 1{tbl} Take 1 Ke lsey e Sodium 40 3-10 tablet by Sey bold MG oral 14:24: mouth - Tablet 19 daily Externa Delayed l Response Ipratropium 2022-0 Yes [id number] 2{spray Use 2 Alaina [place] 3-10 } sprays in Seybold 0.03 % 00:00: each - nasal 00 nostril Externa Solution every 12 l hours Ipratropium 2022-0 Yes [id number] 2{spray Use 2 Alaina [place] 3-10 } sprays in Seybold 0.03 % 00:00: each - nasal 00 nostril Externa Solution every 12 l hours Ipratropium 2022-0 Yes [id number] 2{spray Use 2 Alaina [place] 3-10 } sprays in Seybold 0.03 % 00:00: each - nasal 00 nostril Externa Solution every 12 l hours Ipratropium 2023-0 Yes [id number] 2{spray Use 2 Alaina [place] 3-10 } sprays in Seybold 0.03 % 00:00: each - nasal 00 nostril Externa Solution every 12 l hours Ipratropium 2023-0 Yes [id number] 2{spray Use 2 Alaina [place] 3-10 } sprays in Seybold 0.03 % 00:00: each - nasal 00 nostril Externa Solution every 12 l hours Ipratropium 2023-0 Yes [id number] 2{spray Use 2 Alaina [place] 3-10 } sprays in Seybold 0.03 % 00:00: each - nasal 00 nostril Externa Solution every 12 l hours Ipratropium 2023-0 Yes [id number] 2{spray Use 2 Alaina [place] 3-10 } sprays in Seybold 0.03 % 00:00: each - nasal 00 nostril Externa Solution every 12 l hours Ipratropium 2023-0 Yes [id number] 2{spray Use 2 Alaina [place] 3-10 } sprays in Seybold 0.03 % 00:00: each - nasal 00 nostril Externa Solution every 12 l hours Ipratropium 2023-0 Yes [id number] 2{spray Use 2 Alaina [place] 3-10 } sprays in Seybold 0.03 % 00:00: each - nasal 00 nostril Externa Solution every 12 l hours Ipratropium 2023-0 Yes [id number] 2{spray Use 2 Alaina [place] 3-10 } sprays in Seybold 0.03 % 00:00: each - nasal 00 nostril Externa Solution every 12 l hours Ipratropium 2023-0 Yes [id number] 2{spray Use 2 Alaina [place] 3-10 } sprays in Seybold 0.03 % 00:00: each - nasal 00 nostril Externa Solution every 12 l hours Ipratropium 2023-0 Yes [id number] 2{spray Use 2 Alaina [place] 3-10 } sprays in Seybold 0.03 % 00:00: each - nasal 00 nostril Externa Solution every 12 l hours Levonorgest 2022-0 Yes by other Ke lsey rel 3-08 route Seybold (Mirena, 52 10:06: - MG,) 20 41 Externa MCG/DAY l intrauterin e IUD Pantoprazol 2022-0 Yes 1{tbl} Take 1 Ke lsey e Sodium 40 3-08 tablet by Sey bold MG oral 10:06: mouth - Tablet 41 daily Externa Delayed l Response Benzonatate 3-0 Yes [id number] 100mg Q.[id number] Take 1 Alaina (Tessalon 3-08 [id number] capsule S eybold Perles) 100 00:00: 3D (100 mg - MG oral 00 total) by Externa Capsule mouth 3 l times daily as needed for cough Benzonatate 2023-0 Yes [id number] 100mg Q.[id number] Take 1 Alaina (Tessalon 3-08 [id number] capsule S eybold Perles) 100 00:00: 3D (100 mg - MG oral 00 total) by Externa Capsule mouth 3 l times daily as needed for cough Benzonatate 2023-0 Yes [id number] 100mg Q.[id number] Take 1 Alaina (Tessalon 3-08 [id number] capsule S eybold Perles) 100 00:00: 3D (100 mg - MG oral 00 total) by Externa Capsule mouth 3 l times daily as needed for cough Benzonatate 2023-0 Yes [id number] 100mg Q.[id number] Take 1 Alaina (Tessalon 3-08 [id number] capsule S eybold Perles) 100 00:00: 3D (100 mg - MG oral 00 total) by Externa Capsule mouth 3 l times daily as needed for cough Benzonatate 2023-0 Yes [id number] 100mg Q.[id number] Take 1 Alaina (Tessalon 3-08 [id number] capsule S eybold Perles) 100 00:00: 3D (100 mg - MG oral 00 total) by Externa Capsule mouth 3 l times daily as needed for cough Benzonatate 2023-0 Yes [id number] 100mg Q.[id number] Take 1 Aalina (Tessalon 3-08 [id number] capsule S eybold Perles) 100 00:00: 3D (100 mg - MG oral 00 total) by Externa Capsule mouth 3 l times daily as needed for cough Benzonatate 2023-0 Yes [id number] 100mg Q.[id number] Take 1 Alaina (Tessalon 3-08 [id number] capsule S eybold Perles) 100 00:00: 3D (100 mg - MG oral 00 total) by Externa Capsule mouth 3 l times daily as needed for cough Benzonatate 2023-0 Yes [id number] 100mg Q.[id number] Take 1 Alaina (Tessalon 3-08 [id number] capsule S eybold Perles) 100 00:00: 3D (100 mg - MG oral 00 total) by Externa Capsule mouth 3 l times daily as needed for cough Benzonatate 2023-0 Yes [id number] 100mg Q.[id number] Take 1 Alaina (Tessalon 3-08 [id number] capsule S eybold Perles) 100 00:00: 3D (100 mg - MG oral 00 total) by Externa Capsule mouth 3 l times daily as needed for cough Benzonatate 2023-0 Yes [id number] 100mg Q.[id number] Take 1 Alaina (Tessalon 3-08 [id number] capsule S eybold Perles) 100 00:00: 3D (100 mg - MG oral 00 total) by Externa Capsule mouth 3 l times daily as needed for cough Benzonatate 2023-0 2023- No [id number] 100mg Q.[id number] Take 1 Alaina (Tessalon 3-08 - [id number] capsule Seybold Perles) 100 00:00: 00:00 3D (100 mg - MG oral 00 :00 total) by Externa Capsule mouth 3 l times daily as needed for cough Fluticasone 3-0 Yes [id number] 1{puff} Inhale 1 Alaina Furoate 200 3-06 puff into Sey bold MCG/ACT 00:00: the lungs - inhalation 00 daily Externa AEROSOL l POWDER, BREATH ACTIVATED Fluconazole 2022-0 Yes TAKE ONE Ke lsey 150 MG oral 3-06 (1) Seybold Tablet 00:00: TABLET(S) - 00 BY MOUTH Externa EVERY 3 l DAYS. Fluticasone 2023-0 Yes [id number] 1{puff} Inhale 1 Alaina Furoate 200 3-06 puff into Sey bold MCG/ACT 00:00: the lungs - inhalation 00 daily Externa AEROSOL l POWDER, BREATH ACTIVATED Fluconazole 2022-0 Yes TAKE ONE Ke lsey 150 MG oral 3-06 (1) Seybold Tablet 00:00: TABLET(S) - 00 BY MOUTH Externa EVERY 3 l DAYS. Fluticasone 2023-0 Yes [id number] 1{puff} Inhale 1 Alaina Furoate 200 3-06 puff into Sey bold MCG/ACT 00:00: the lungs - inhalation daily Externa AEROSOL l POWDER, BREATH ACTIVATED Fluconazole 2022-0 Yes TAKE ONE Ke lsey 150 MG oral 3-06 (1) Seybold Tablet 00:00: TABLET(S) - 00 BY MOUTH Externa EVERY 3 l DAYS. Fluticasone 2023-0 Yes [id number] 1{puff} Inhale 1 Alaina Furoate 200 3-06 puff into Sey bold MCG/ACT 00:00: the lungs - inhalation daily Externa AEROSOL l POWDER, BREATH ACTIVATED Fluticasone 2022-0 Yes [id number] 1{puff} Inhale 1 Alaina Furoate 200 3-06 puff into Sey bold MCG/ACT 00:00: the lungs - inhalation daily Externa AEROSOL l POWDER, BREATH ACTIVATED Fluticasone 3-0 Yes [id number] 1{puff} Inhale 1 Alaina Furoate 200 3-06 puff into Sey bold MCG/ACT 00:00: the lungs - inhalation daily Externa AEROSOL l POWDER, BREATH ACTIVATED Fluticasone 3-0 Yes [id number] 1{puff} Inhale 1 Alaina Furoate 200 3-06 puff into Sey bold MCG/ACT 00:00: the lungs - inhalation daily Externa AEROSOL l POWDER, BREATH ACTIVATED Fluticasone 2023-0 Yes [id number] 1{puff} Inhale 1 Alaina Furoate 200 3-06 puff into Sey bold MCG/ACT 00:00: the lungs - inhalation daily Externa AEROSOL l POWDER, BREATH ACTIVATED Fluticasone 3-0 Yes [id number] 1{puff} Inhale 1 Alaina Furoate 200 3-06 puff into Sey bold MCG/ACT 00:00: the lungs - inhalation 00 daily Externa AEROSOL l POWDER, BREATH ACTIVATED Fluticasone 2022-0 Yes [id number] 1{puff} Inhale 1 Alaina Furoate 200 3-06 puff into Sey bold MCG/ACT 00:00: the lungs - inhalation 00 daily Externa AEROSOL l POWDER, BREATH ACTIVATED Fluticasone 2022-0 Yes [id number] 1{puff} Inhale 1 Alaina Furoate 200 3-06 puff into Sey bold MCG/ACT 00:00: the lungs - inhalation 00 daily Externa AEROSOL l POWDER, BREATH ACTIVATED Fluticasone 2022-0 Yes [id number] 1{puff} Inhale 1 Alaina Furoate 200 3-06 puff into Sey bold MCG/ACT 00:00: the lungs - inhalation daily Externa AEROSOL l POWDER, BREATH ACTIVATED Fluticasone 2022-0 Yes [id number] 1{puff} Inhale 1 Alaina Furoate 200 3-06 puff into Sey bold MCG/ACT 00:00: the lungs - inhalation daily Externa AEROSOL l POWDER, BREATH ACTIVATED Fluconazole 0 2022- No TAKE ONE K elsey 150 MG oral 3 04-06 (1) Seybold Tablet 00:00: 00:00 TABLET(S) - 00 :00 BY MOUTH Externa EVERY 3 l DAYS. Levonorgest 0 Yes by other Ke lsey rel 3-02 route Seybold (Mirena, 52 08:15: - MG,) 20 13 Externa MCG/DAY l intrauterin e IUD Pantoprazol 0 Yes 1{tbl} Take 1 Ke lsey e Sodium 40 3-02 tablet by Sey bold MG oral 08:15: mouth - Tablet 13 daily Externa Delayed l Response Budesonide 2022-0 Yes [id number] 1{puff} Inhale 1 Alaina (Pulmicort 3-02 puff into Seyb old Flexhaler) 00:00: the lungs - 180 MCG/ACT 00 2 times Exter na inhalation daily l AEROSOL POWDER, BREATH ACTIVATED Mupirocin 2022-0 Yes [id number] Apply 1 Alaina (BACTROBAN) 3-02 applicatio Se ybold 2 % apply 00:00: n. - externally 00 topically Exte rna Ointment 3 times l daily Mupirocin 2023-0 Yes [id number] Apply 1 Al[place]a (BACTROBAN) 3-02 applicatio Se ybold 2 % apply 00:00: n. - externally 00 topically Exte rna Ointment 3 times l daily Mupirocin 2023-0 Yes [id number] Apply 1 Al[place]a (BACTROBAN) 3- applicatio Se ybold 2 % apply 00:00: n. - externally 00 topically Exte rna Ointment 3 times l daily Mupirocin 2023-0 Yes [id number] Apply 1 Al[place]a (BACTROBAN) 3- applicatio Se ybold 2 % apply 00:00: n. - externally 00 topically Exte rna Ointment 3 times l daily Mupirocin 2023-0 Yes [id number] Apply 1 Al[place]a (BACTROBAN) 3- applicatio Se ybold 2 % apply 00:00: n. - externally 00 topically Exte rna Ointment 3 times l daily Mupirocin 2023-0 Yes [id number] Apply 1 Al[place]a (BACTROBAN) 3- applicatio Se ybold 2 % apply 00:00: n. - externally 00 topically Exte rna Ointment 3 times l daily Mupirocin 2023-0 Yes [id number] Apply 1 Al[place]a (BACTROBAN) 3- applicatio Se ybold 2 % apply 00:00: n. - externally 00 topically Exte rna Ointment 3 times l daily Mupirocin 2023-0 Yes [id number] Apply 1 Al[place]a (BACTROBAN) 3- applicatio Se ybold 2 % apply 00:00: n. - externally 00 topically Exte rna Ointment 3 times l daily Mupirocin 2023-0 Yes [id number] Apply 1 [place]a (BACTROBAN) 3-02 applicatio Se ybold 2 % apply 00:00: n. - externally 00 topically Exte rna Ointment 3 times l daily Mupirocin 2023-0 Yes [id number] Apply 1 [place]a (BACTROBAN) 3-02 applicatio Se ybold 2 % apply 00:00: n. - externally 00 topically Exte rna Ointment 3 times l daily Mupirocin 2022-0 Yes [id number] Apply 1 Al[place]a (BACTROBAN) 01-04 applicatio Se ybold 2 % apply 00:00: n. - externally 00 topically Exte rna Ointment 3 times l daily Mupirocin 2022-0 3- No [id number] Apply 1 [place]a (BACTROBAN) 3 08 applicatio S eybold 2 % apply 00:00: 00:00 n. - externally 00 :00 topically Exte rna Ointment 3 times l daily Cephalexin 2022-0 Yes TAKE ONE Sean sey 500 MG oral 2-28 (1) Seybold Capsule 00:00: CAPSULE(S) - 00 BY MOUTH Externa EVERY l TWELVE HOURS. Cephalexin 2022-0 Yes TAKE ONE Sean sey 500 MG oral 2-28 (1) Seybold Capsule 00:00: CAPSULE(S) - 00 BY MOUTH Externa EVERY l TWELVE HOURS. Cephalexin 2022-0 2022- No TAKE ONE Ke lsey 500 MG oral 2-28 03-10 (1) Seybold Capsule 00:00: 00:00 CAPSULE(S) - 00 :00 BY MOUTH Externa EVERY l TWELVE HOURS. Levonorgest 2022-0 Yes by other Ke lsey rel 2-24 route Seybold (Mirena, 52 10:40: - MG,) 20 50 Externa MCG/DAY l intrauterin e IUD Pantoprazol 0 Yes 1{tbl} Take 1 Ke lsey e Sodium 40 2-24 tablet by Sey bold MG oral 10:40: mouth - Tablet 50 daily Externa Delayed l Response Benzonatate 2022-0 Yes [id number] 100mg Q.[id number] Take 1 [facility] (Tessalon 2-22 [id number] capsule S eybold Dwight) 100 00:00: 3D (100 mg - MG oral 00 total) by Externa Capsule mouth 3 l times daily as needed for cough guaiFENesin 2022-0 Yes [id number] 5mL Q.[id number] Take 5 mL [facility] -Codeine 2-22 [id number] by mouth 3 Seybold 100-10 00:00: 3D times - MG/5ML oral 00 daily as Exte rna Syrup needed for l cough guaiFENesin 2023-0 Yes [id number] 5mL Q.[id number] Take 5 mL [facility] -Codeine 2-22 [id number] by mouth 3 Seybold 100-10 00:00: 3D times - MG/5ML oral 00 daily as Exte rna Syrup needed for l cough guaiFENesin 2023-0 Yes [id number] 5mL Q.[id number] Take 5 mL [facility] -Codeine 2-22 [id number] by mouth 3 Seybold 100-10 00:00: 3D times - MG/5ML oral 00 daily as Exte rna Syrup needed for l cough guaiFENesin 2023-0 Yes [id number] 5mL Q.[id number] Take 5 mL [facility] -Codeine 2-22 [id number] by mouth 3 Seybold 100-10 00:00: 3D times - MG/5ML oral 00 daily as Exte rna Syrup needed for l cough methylPREDN 2023-0 Yes [id number] 1{lacey} Take 1 lacey Foley ISolone 4 2-22 by mouth Seybol d MG oral 00:00: See Admin - Tablet 00 Instructio Externa Therapy ns Use as l Pack directed Benzonatate 2023-0 Yes [id number] 100mg Q.[id number] Take 1 [facility] (Tessalon 2-22 [id number] capsule S eybold Dwight) 100 00:00: 3D (100 mg - MG oral 00 total) by Externa Capsule mouth 3 l times daily as needed for cough guaiFENesin 2023-0 Yes [id number] 5mL Q.[id number] Take 5 mL [facility] -Codeine 2-22 [id number] by mouth 3 Seybold 100-10 00:00: 3D times - MG/5ML oral 00 daily as Exte rna Syrup needed for l cough methylPREDN 2023-0 Yes [id number] 1{lacey} Take 1 lacey [facility] ISolone 4 2-22 by mouth Seybol d MG oral 00:00: See Admin - Tablet 00 Instructio Externa Therapy ns Use as l Pack directed Benzonatate 2023-0 Yes [id number] 100mg Q.[id number] Take 1 [facility] (Tessalon 2-22 [id number] capsule S eybold Perles) 100 00:00: 3D (100 mg - MG oral 00 total) by Externa Capsule mouth 3 l times daily as needed for cough guaiFENesin 2022-0 Yes [id number] 5mL Q.[id number] Take 5 mL [facility] -Codeine 12-27 [id number] by mouth 3 Seybold 100-10 00:00: 3D times - MG/5ML oral 00 daily as Exte rna Syrup needed for l cough Azithromyci 2022-0 2022- No [id number] Take 2 [facility] n 250 MG 12-27- tablets by Seyb old oral Tablet 00:00: 00:00 mouth on - 00 :00 day 1 then Externa 1 tablet l by mouth daily for 4 days thereafter . Benzonatate 2022-0 2022- No [id number] 100mg Q.[id number] Take 1 [facility] (Tessalon 12-27- [id number] capsule Seybold Perles) 100 00:00: 00:00 3D (100 mg - MG oral 00 :00 total) by Externa Capsule mouth 3 l times daily as needed for cough methylPREDN 2022-0 2022- No [id number] 1{lacey} Take 1 lacey [facility] ISolone 4 12-27- by mouth Seybo ld MG oral 00:00: 00:00 See Admin - Tablet 00 :00 Instructio Externa Therapy ns Use as l Pack directed Azithromyci 2022-0 3- No [id number] Take 2 [facility] n 250 MG 12-27- tablets by Seyb old oral Tablet 00:00: 05:59 mouth on - 00 :00 day 1 then Externa 1 tablet l by mouth daily for 4 days thereafter . Azithromyci 2022-0 2022- No [id number] Take 2 [facility] n 250 MG 12-27- tablets by Seyb old oral Tablet 00:00: [...] 00 times Externa daily l Gabapentin 2022-0 2022- No 1200mg Take 1,200 [facility] 600 MG oral 2-04 03-02 mg by Seybol d Tablet 00:00: 00:00 mouth 2 - 00 :00 times Externa daily l Ondansetron 2022-0 2022- No 4mg Take 4 mg [facility] HCl -23 11-19 by mouth Seybold (ZOFRAN) 4 18:47: 00:00 - MG OR TABS 03 :00 Externa l Amoxicillin 2022-0 2022- No 500mg Take 500 [place] 500 MG OR 19 -19 mg by Seybold TABS 18:46: 00:00 mouth 3 - 57 :00 times Externa daily l Levonorgest 2022-0 Yes by other Ke lsey rel 1-19 route Seybold (Mirena, 52 10:18: - MG,) 20 14 Externa MCG/DAY l intrauterin e IUD Pantoprazol 0 Yes 1{tbl} Take 1 Ke lsey e Sodium 40 1-19 tablet by Sey bold MG oral 10:18: mouth - Tablet 14 daily Externa Delayed l Response Levonorgest 2022-0 Yes by other Ke lsey rel 1-19 [...] mouth - 00 daily Externa l Aripiprazol 3-0 Yes 1{tbl} Take 1 Ke lsey e 5 MG oral 1-13 tablet by Sey bold Tablet 00:00: mouth - 00 daily Externa l Aripiprazol 3-0 Yes 1{tbl} Take 1 Ke lsey e 5 MG oral 1-13 tablet by Sey bold Tablet 00:00: mouth - 00 daily Externa l Aripiprazol 3-0 Yes 5mg Take 1 Ivon ey e 5 MG oral 1-13 tablet (5 Sey bold Tablet 00:00: mg total) - 00 by mouth Externa daily l Aripiprazol 3-0 Yes 5mg Take 1 Ivon ey e 5 MG oral 1-13 tablet (5 Sey bold Tablet 00:00: mg total) - 00 by mouth Externa daily l Aripiprazol 3-0 Yes 5mg Take 1 Ivon ey e 5 MG oral 1-13 tablet (5 Sey bold Tablet 00:00: mg total) - 00 by mouth Externa daily l Aripiprazol 3-0 Yes 5mg Take 1 Ivon ey e 5 MG oral 1-13 tablet (5 Sey bold Tablet 00:00: mg total) - 00 by mouth Externa daily l Aripiprazol 3-0 Yes 5mg Take 1 Ivon ey e 5 MG oral 1-13 tablet (5 Sey bold Tablet 00:00: mg total) - 00 by mouth Externa daily l Aripiprazol 3-0 Yes 5mg Take 1 Ivon ey e 5 MG oral 1-13 tablet (5 Sey bold Tablet 00:00: mg total) - 00 by mouth Externa daily l Aripiprazol 3-0 Yes 5mg Take 1 Ivon ey e 5 MG oral 1-13 tablet (5 Sey bold Tablet 00:00: mg total) - 00 by mouth Externa daily l Aripiprazol 3-0 Yes 1{tbl} Take 1 Ke lsey e 5 MG oral 1-13 tablet by Sey bold Tablet 00:00: mouth - 00 daily Externa l Aripiprazol 3-0 Yes 5mg Take 1 Ivon ey e 5 MG oral 1-13 tablet (5 Sey bold Tablet 00:00: mg total) - 00 by mouth Externa daily. l Aripiprazol 2022-0 Yes 5mg Take 1 Ivon ey e 5 MG oral 1-13 tablet (5 Sey bold Tablet 00:00: mg total) - 00 by mouth Externa daily. l Aripiprazol 2022-0 Yes 5mg Take 1 Ivon ey e 5 MG oral 1-13 tablet (5 Sey bold Tablet 00:00: mg total) - 00 by mouth Externa daily. l Aripiprazol 2022-0 Yes 1{tbl} Take 1 Ke lsey e 5 MG oral 1-13 tablet by Sey bold Tablet 00:00: mouth - 00 daily Externa l Albuterol 0 Yes INHALE TWO Ke lsey HFA 108 (90 1-05 (2) PUFFS Sey bold Base) 00:00: BY MOUTH - MCG/ACT IN 00 EVERY 4-6 Exte rna AERS HOURS l NEEDED FOR SHORTNESS OF BREATH, COUGH, OR WHEEZING. Albuterol 0 Yes INHALE TWO Ke lsey HFA 108 (90 1-05 (2) PUFFS Sey bold Base) 00:00: BY MOUTH - MCG/ACT IN 00 EVERY 4-6 Exte rna AERS HOURS l NEEDED FOR SHORTNESS OF BREATH, COUGH, OR WHEEZING. Albuterol 2022-0 Yes INHALE TWO Ke lsey HFA 108 (90 1-05 (2) PUFFS Sey bold Base) 00:00: BY MOUTH - MCG/ACT IN 00 EVERY 4-6 Exte rna AERS HOURS l NEEDED FOR SHORTNESS OF BREATH, COUGH, OR WHEEZING. Albuterol 0 Yes INHALE TWO Ke lsey HFA 108 (90 1-05 (2) PUFFS Sey bold Base) 00:00: BY MOUTH - MCG/ACT IN 00 EVERY 4-6 Exte rna AERS HOURS l NEEDED FOR SHORTNESS OF BREATH, COUGH, OR WHEEZING. Albuterol 2022-0 Yes INHALE TWO Ke lsey HFA 108 (90 1-05 (2) PUFFS Sey bold Base) 00:00: BY MOUTH - MCG/ACT IN 00 EVERY 4-6 Exte rna AERS HOURS l NEEDED FOR SHORTNESS OF BREATH, COUGH, OR WHEEZING. Albuterol 2022-0 Yes INHALE TWO Ke lsey HFA 108 (90 1-05 (2) PUFFS Sey bold Base) 00:00: BY MOUTH - MCG/ACT IN 00 EVERY 4-6 Exte rna AERS HOURS l NEEDED FOR SHORTNESS OF BREATH, COUGH, OR WHEEZING. Albuterol 2022-0 Yes INHALE TWO Ke lsey HFA 108 (90 1-05 (2) PUFFS Sey bold Base) 00:00: BY MOUTH - MCG/ACT IN 00 EVERY 4-6 Exte rna AERS HOURS l NEEDED FOR SHORTNESS OF BREATH, COUGH, OR WHEEZING. Albuterol 2022-0 Yes INHALE TWO Ke lsey HFA 108 (90 1-05 (2) PUFFS Sey bold Base) 00:00: BY MOUTH - MCG/ACT IN 00 EVERY 4-6 Exte rna AERS HOURS l NEEDED FOR SHORTNESS OF BREATH, COUGH, OR WHEEZING. Albuterol 2022-0 Yes INHALE TWO Ke lsey HFA 108 (90 1-05 (2) PUFFS Sey bold Base) 00:00: BY MOUTH - MCG/ACT IN 00 EVERY 4-6 Exte rna AERS HOURS l NEEDED FOR SHORTNESS OF BREATH, COUGH, OR WHEEZING. Albuterol 2022-0 Yes INHALE TWO Ke lsey HFA 108 (90 1-05 (2) PUFFS Sey bold Base) 00:00: BY MOUTH - MCG/ACT IN 00 EVERY 4-6 Exte rna AERS HOURS l NEEDED FOR SHORTNESS OF BREATH, COUGH, OR WHEEZING. Albuterol 2022-0 Yes INHALE TWO Ke lsey HFA 108 (90 1-05 (2) PUFFS Sey bold Base) 00:00: BY MOUTH - MCG/ACT IN 00 EVERY 4-6 Exte rna AERS HOURS l NEEDED FOR SHORTNESS OF BREATH, COUGH, OR WHEEZING. Albuterol 2022-0 Yes INHALE TWO Ke lsey HFA 108 (90 1-05 (2) PUFFS Sey bold Base) 00:00: BY MOUTH - MCG/ACT IN 00 EVERY 4-6 Exte rna AERS HOURS l NEEDED FOR SHORTNESS OF BREATH, COUGH, OR WHEEZING. Albuterol 2022-0 Yes INHALE TWO Ke lsey HFA 108 [...] mouth - Particles 00 daily Externa l Duloxetine 2021-11 Yes 120mg Take 120 Ke [...] A DAY AT BEDTIME NEEDED FOR SLEEP. Vyvanse 50 2021-11 Yes 50mg Take 50 mg K elsey MG oral 2-26 by mouth Seybold Capsule 00:00: daily - 00 Externa l Duloxetine 2021-11 Yes 120mg Take 120 Ke [...] A DAY AT BEDTIME NEEDED FOR SLEEP. Zolpidem 2021-11 Yes TAKE ONE Kelse y [...] FOR SLEEP. Duloxetine 2021-11 Yes 120mg Take 2 Ivon ey HCl 60 MG 2-26 capsules Seybol d oral Cap DR 00:00: (120 mg - Particles 00 total) by Exter na mouth l daily Vyvanse 50 2021-11 Yes 50mg Take 1 Kelse y MG oral 2-26 capsule Seybold Capsule 00:00: (50 mg - 00 total) by Externa mouth l daily Zolpidem 2021-11 Yes TAKE ONE Kelse y Tartrate 5 2-26 (1) OR TWO Sey bold MG oral 00:00: (2) - Tablet 00 TABLET(S) Externa BY MOUTH l ONCE A DAY AT BEDTIME NEEDED FOR SLEEP. Duloxetine 2021-11 Yes 120mg Take 2 Ivon ey HCl 60 MG 2-26 capsules Seybol d oral Cap DR 00:00: (120 mg - Particles 00 total) by Exter na mouth l daily Vyvanse 50 2021-11 Yes 50mg Take 1 Kelse y MG oral 2-26 capsule Seybold Capsule 00:00: (50 mg - 00 total) by Externa mouth l daily Zolpidem 2021-11 Yes TAKE ONE Kelse y Tartrate 5 2-26 (1) OR TWO Sey bold MG oral 00:00: (2) - Tablet 00 TABLET(S) Externa BY MOUTH l ONCE A DAY AT BEDTIME NEEDED FOR SLEEP. Duloxetine 2021-11 Yes 120mg Take 2 Ivon ey HCl 60 MG 2-26 capsules Seybol d oral Cap DR 00:00: (120 mg - Particles 00 total) by Exter na mouth l daily Vyvanse 50 2021-11 Yes 50mg Take 1 Kelse y MG oral 2-26 capsule Seybold Capsule 00:00: (50 mg - 00 total) by Externa mouth l daily Zolpidem 2021-11 Yes TAKE ONE Kelse y Tartrate 5 2-26 (1) OR TWO Sey bold MG oral 00:00: (2) - Tablet 00 TABLET(S) Externa BY MOUTH l ONCE A DAY AT BEDTIME NEEDED FOR SLEEP. Duloxetine 2021-11 Yes 120mg Take 2 Ivon ey HCl 60 MG 2-26 capsules Seybol d oral Cap DR 00:00: (120 mg - Particles 00 total) by Exter na mouth l daily Vyvanse 50 2021-11 Yes 50mg Take 1 Kelse y MG oral 2-26 capsule Seybold Capsule 00:00: (50 mg - 00 total) by Externa mouth l daily Zolpidem 2021-11 Yes TAKE ONE Kelse y Tartrate 5 2-26 (1) OR TWO Sey bold MG oral 00:00: (2) - Tablet 00 TABLET(S) Externa BY MOUTH l ONCE A DAY AT BEDTIME NEEDED FOR SLEEP. Duloxetine 2021-11 Yes 120mg Take 2 Ivon ey HCl 60 MG 2-26 capsules Seybol d oral Cap DR 00:00: (120 mg - Particles 00 total) by Exter na mouth l daily Vyvanse 50 2021-11 Yes 50mg Take 1 Kelse y MG oral 2-26 capsule Seybold Capsule 00:00: (50 mg - 00 total) by Externa mouth l daily Zolpidem 2021-11 Yes TAKE ONE Kelse y Tartrate 5 2-26 (1) OR TWO Sey bold MG oral 00:00: (2) - Tablet 00 TABLET(S) Externa BY MOUTH l ONCE A DAY AT BEDTIME NEEDED FOR SLEEP. Duloxetine 2021-11 Yes 120mg Take 2 Ivon ey HCl 60 MG 2-26 capsules Seybol d oral Cap DR 00:00: (120 mg - Particles 00 total) by Exter na mouth l daily Vyvanse 50 2021-11 Yes 50mg Take 1 Kelse y MG oral 2-26 capsule Seybold Capsule 00:00: (50 mg - 00 total) by Externa mouth l daily Zolpidem 2021-11 Yes TAKE ONE Kelse y Tartrate 5 2-26 (1) OR TWO Sey bold MG oral 00:00: (2) - Tablet 00 TABLET(S) Externa BY MOUTH l ONCE A DAY AT BEDTIME NEEDED FOR SLEEP. Duloxetine 2021-11 Yes 120mg Take 2 Ivon ey HCl 60 MG 2-26 capsules Seybol d oral Cap DR 00:00: (120 mg - Particles 00 total) by Exter na mouth l daily Vyvanse 50 2021-11 Yes 50mg Take 1 Kelse y MG oral 2-26 capsule Seybold Capsule 00:00: (50 mg - 00 total) by Externa mouth l daily Zolpidem 2021-11 Yes TAKE ONE Kelse y Tartrate 5 2-26 (1) OR TWO Sey bold MG oral 00:00: (2) - Tablet 00 TABLET(S) Externa BY MOUTH l ONCE A DAY AT BEDTIME NEEDED FOR SLEEP. Duloxetine 2021-11 Yes 120mg Take 120 Ke lsey HCl 60 MG 2-26 mg by Seybold oral Cap DR 00:00: mouth - Particles 00 daily Externa l Duloxetine 2021-11 Yes 120mg Take 2 Ivon ey HCl 60 MG 2-26 capsules Seybol d oral Cap DR 00:00: (120 mg - Particles 00 total) by Exter na mouth l daily. Vyvanse 50 2021-11 Yes 50mg Take 1 Kelse y MG oral 2-26 capsule Seybold Capsule 00:00: (50 mg - 00 total) by Externa mouth l daily. Zolpidem 2021-11 Yes TAKE ONE Kelse y Tartrate 5 2-26 (1) OR TWO Sey bold MG oral 00:00: (2) - Tablet 00 TABLET(S) Externa BY MOUTH l ONCE A DAY AT BEDTIME NEEDED FOR SLEEP. Vyvanse 50 2021-11 Yes 50mg Take 50 mg K elsey MG oral 2-26 by mouth Seybold Capsule 00:00: daily - 00 Externa l Duloxetine 2021-11 Yes 120mg Take 2 Ivon ey HCl 60 MG 2-26 capsules Seybol d oral Cap DR 00:00: (120 mg - Particles 00 total) by Exter na mouth l daily. Vyvanse 50 2021-11 Yes 50mg Take 1 Kelse y MG oral 2-26 capsule Seybold Capsule 00:00: (50 mg - 00 total) by Externa mouth l daily. Zolpidem 2021-11 Yes TAKE ONE Kelse y Tartrate 5 2-26 (1) OR TWO Sey bold MG oral 00:00: (2) - Tablet 00 TABLET(S) Externa BY MOUTH l ONCE A DAY AT BEDTIME NEEDED FOR SLEEP. Zolpidem 2021-11 Yes TAKE ONE Kelse y Tartrate 5 2-26 (1) OR TWO Sey bold MG oral 00:00: (2) - Tablet 00 TABLET(S) Externa BY MOUTH l ONCE A DAY AT BEDTIME NEEDED FOR SLEEP. Duloxetine 2021-11 Yes 120mg Take 2 Ivon ey HCl 60 MG 2-26 capsules Seybol d oral Cap DR 00:00: (120 mg - Particles 00 total) by Exter na mouth l daily. Vyvanse 50 2021-11 Yes 50mg Take 1 Kelse y MG oral 2-26 capsule Seybold Capsule 00:00: (50 mg - 00 total) by Externa mouth l daily. Zolpidem 2021-11 Yes TAKE ONE Kelse y [...] Yes PLACE ONE K elsey (ZOFRAN) 4 -08 (1) TABLET Sey bold MG oral 00:00: [...] HOURS NEEDED. Ondansetron 2021-[address] Sharon lawson (ZOFRAN) 4 -08 (1) TABLET Sey bold MG oral 00:00: BY MOUTH - TABLET 00 ON THE Externa DISPERSIBLE TONGUE AND l ALLOW TO DISSOLVE EVERY 8 HOURS NEEDED. Ondansetron 2021-[address] Sharon elsey (ZOFRAN) 4 -08 (1) TABLET Sey bold MG oral 00:00: BY MOUTH - TABLET 00 ON THE Externa DISPERSIBLE TONGUE AND l ALLOW TO DISSOLVE EVERY 8 HOURS NEEDED. Ondansetron 2021-[address] Sharon elsey (ZOFRAN) 4 -08 (1) TABLET Sey bold MG oral 00:00: BY MOUTH - TABLET 00 ON THE Externa DISPERSIBLE TONGUE AND l ALLOW TO DISSOLVE EVERY 8 HOURS NEEDED. Ondansetron 2021-[address] Sharon merritty (ZOFRAN) 4 -08 (1) TABLET Sey bold MG oral 00:00: BY MOUTH - TABLET 00 ON THE Externa DISPERSIBLE TONGUE AND l ALLOW TO DISSOLVE EVERY 8 HOURS NEEDED. Ondansetron 2021-[address] Sharon merritty (ZOFRAN) 4 -08 (1) TABLET Sey bold MG oral 00:00: BY MOUTH - TABLET 00 ON THE Externa DISPERSIBLE TONGUE AND l ALLOW TO DISSOLVE EVERY 8 HOURS NEEDED. Ondansetron 2021-[address] Sharon merritty (ZOFRAN) 4 08 (1) TABLET Sey bold MG oral 00:00: BY MOUTH - TABLET 00 ON THE Externa DISPERSIBLE TONGUE AND l ALLOW TO DISSOLVE EVERY 8 HOURS NEEDED. Ondansetron 2021-[address] ONE Sharon elsey (ZOFRAN) 4 -08 (1) TABLET Sey bold MG oral 00:00: BY MOUTH - TABLET 00 ON THE Externa DISPERSIBLE TONGUE AND l ALLOW TO DISSOLVE EVERY 8 HOURS NEEDED. Ondansetron 2021-[address] Sharon elsey (ZOFRAN) 4 -08 (1) TABLET Sey bold MG oral 00:00: BY MOUTH - TABLET 00 ON THE Externa DISPERSIBLE TONGUE AND l ALLOW TO DISSOLVE EVERY 8 HOURS NEEDED. Ondansetron 2021-[address] K elsey (ZOFRAN) 4 -08 (1) TABLET Sey bold MG oral 00:00: BY MOUTH - TABLET 00 ON THE Externa DISPERSIBLE TONGUE AND l ALLOW TO DISSOLVE EVERY 8 HOURS NEEDED. Ondansetron 2021-[address] ONE K elsey (ZOFRAN) 4 -08 (1) TABLET Sey bold MG oral 00:00: BY MOUTH - TABLET 00 ON THE Externa DISPERSIBLE TONGUE AND l ALLOW TO DISSOLVE EVERY 8 HOURS NEEDED. Ondansetron 2021-[address] K elsey (ZOFRAN) 4 08 (1) TABLET Sey bold MG oral 00:00: BY MOUTH - TABLET 00 ON THE Externa DISPERSIBLE TONGUE AND l ALLOW TO DISSOLVE EVERY 8 HOURS NEEDED. Ondansetron 2021-[address] ONE K elsey (ZOFRAN) 4 -08 (1) TABLET Sey bold MG oral 00:00: BY MOUTH - TABLET 00 ON THE Externa DISPERSIBLE TONGUE AND l ALLOW TO DISSOLVE EVERY 8 HOURS NEEDED. Ondansetron 2021-[address] ONE K elsey (ZOFRAN) 4 08 (1) TABLET Sey bold MG oral 00:00: [...] route - Capsule 00 Externa l Prazosin 2021-1 Yes 5mg 1 capsule Ivon ey HCl 5 MG 0-17 (5 mg Seybold oral 00:00: total) by - Capsule 00 other Externa route l Prazosin 2020- Yes 5mg 1 capsule Ivon ey HCl 5 MG 0-17 (5 mg Seybold oral 00:00: total) by - Capsule 00 other Externa route l Prazosin 2020- Yes 5mg 1 capsule Ivon ey HCl 5 MG 0-17 (5 mg Seybold oral 00:00: total) by - Capsule 00 other Externa route l Prazosin 2020- Yes 5mg 1 capsule Ivon ey HCl 5 MG 0-17 (5 mg Seybold oral 00:00: total) by - Capsule 00 other Externa route l Prazosin 2020- Yes 5mg 1 capsule Ivon ey HCl 5 MG 0-17 (5 mg Seybold oral 00:00: total) by - Capsule 00 other Externa route l Prazosin 2020- Yes 5mg 1 capsule Ivon ey HCl 5 MG 0-17 (5 mg Seybold oral 00:00: total) by - Capsule 00 other Externa route l Prazosin 2020-11 Yes 5mg 1 capsule Ivon ey HCl 5 MG 0-17 (5 mg Seybold oral 00:00: total) by - Capsule 00 other Externa route l Prazosin 2020- Yes 5mg 1 capsule Ivon ey HCl 5 MG 0-17 (5 mg Seybold oral 00:00: total) by - Capsule 00 other Externa route. l Prazosin 2020-11 Yes 1{capsu 1 capsule K elsey HCl 5 MG 0-17 le} by other Seybold oral 00:00: route - Capsule 00 Externa l Prazosin 2020- Yes 5mg 1 capsule Ivon ey HCl 5 MG 0-17 (5 mg Seybold oral 00:00: total) by - Capsule 00 other Externa route. l Prazosin 2020- Yes 5mg 1 capsule Ivon ey HCl 5 MG 0-17 (5 mg Seybold oral 00:00: total) by - Capsule 00 other Externa route. l Prazosin 2020- Yes 1{capsu 1 capsule K elsey HCl 5 MG 0-17 le} by other Seybold oral 00:00: route - Capsule 00 Externa l fLUoxetine 2020-0 Yes 30mg QD Take [address] (PROZAC) 10 4-10 by mouth Luke s MG capsule 15:14: daily. Medic al [address] [place] fLUoxetine 2020-0 Yes 30mg QD Take [address] (PROZAC) 10 4-10 by mouth Luke s MG capsule 15:14: daily. Medic al [address] [place] OLANZapine 2019-0 Yes TK [address] [facility]YPREXA[facility] 4-[facility] tablet [facility] OLANZapine 2019-0 Yes TK [address] [facility] (ZYPREXA) 4-02 [facility] MG 00:[facility]: Medical tablet 00 [place] clomiPRAMIN 2019-0 Yes TK [address] [facility] 3-24 [facility]D [facility] (ANAFRANIL) 00:00: Medica l 50 MG 00 Center capsule clomiPRAMIN 2019-0 Yes TK [address] [facility] 3-[facility]D [facility] (ANAFRANIL) 00:00: Medica l 50 MG 00 Center capsule gabapentin 2019-0 Yes TK [address] [facility] (NEURONTIN) 3-20 QD [facility] 300 MG 00:00: Medical capsule 00 [place] gabapentin 2019-0 Yes TK [address] [facility] (NEURONTIN) 3-20 QD [facility] 300 MG 00:00: Medical capsule 00 [place] hydrOXYzine 2019-0 Yes TK [address] [facility] (VISTARIL) 2-19 TID PRN [facility] 25 MG 00:00: Medical capsule 00 [place] hydrOXYzine 2019-0 Yes TK [address] [facility] (VISTARIL) 2-19 TID [facility]N [facility] 25 MG 00:00: Medical capsule 00 [place] ondansetron 2017-0 Yes 4mg Take [address] (ZOFRAN-ODT 1-04 by mouth. Alistair es ) 4 MG 00:00: Medical disintegrat 00 Center ing tablet ondansetron 2017 Yes 4mg Take [address] (ZOFRAN-ODT 1-04 by mouth. Alistair es ) 4 MG 00:00: Medical disintegrat 00 Center ing tablet Immunizations Ordered Immunization Filled Immunization Date Status Commen ts Source Name Name Tdap- (Boostrix, 2020-10-24 Completed [facility] friedman Adacel) 00:00:00 - External Tdap- (Boostrix, 2020-10-24 Completed [facility] S eybold Adacel) 00:00:00 - External Tdap- (Boostrix, 2020-10-24 Completed [facility] S eybold Adacel) 00:00:00 - External Tdap- (Boostrix, 2020-10-24 Completed [facility] S eybold Adacel) 00:00:00 - External Tdap- (Boostrix, 2020-10-24 Completed [facility] S eybold Adacel) 00:00:00 - External Tdap- (Boostrix, 2020-10-24 Completed [facility] S eybold Adacel) 00:00:00 - External Tdap- (Boostrix, 2020-10-24 Completed [facility] S eybold Adacel) 00:00:00 - External Tdap- (Boostrix, 2020-10-24 Completed [facility] S eybold Adacel) 00:00:00 - External Tdap- (Boostrix, 2020-10-24 Completed [facility] S eybold Adacel) 00:00:00 - External Tdap- (Boostrix, 2020-10-24 Completed [facility] S eybold Adacel) 00:00:00 - External Tdap- (Boostrix, 2020-10-24 Completed [facility] S eybold Adacel) 00:00:00 - External Tdap- (Boostrix, 2020-10-24 Completed [facility] S eybold Adacel) 00:00:00 - External Tdap- (Boostrix, 2020-10-24 Completed [facility] S eybold Adacel) 00:00:00 - External Tdap- (Boostrix, 2020-10-24 Completed [facility] S eybold Adacel) 00:00:00 - External Tdap- (Boostrix, 2020-10-24 Completed [facility] S eybold Adacel) 00:00:00 - External Tdap- (Boostrix, 2020-10-24 Completed [facility] S eybold Adacel) 00:00:00 - External Tdap- (Boostrix, 2020-10-24 Completed [facility] S eybold Adacel) 00:00:00 - External Tdap 2020-10-[address] [facility] 00:00:00 [facility] Tdap 2020-10-24 [facility] 00:[facility]:00 [facility] Meningococcal 2016-03-22 Completed [facility] Vaccine- 00:00:00 - External Conjugate(Menactra) Meningococcal 2016-03-22 Completed [facility] Vaccine- 00:00:00 - External Conjugate(Menactra) Meningococcal 2016-03-22 Completed [facility] Vaccine- 00:00:00 - External Conjugate(Menactra) Meningococcal 2016-03-22 Completed [facility] Vaccine- 00:00:00 - External Conjugate(Menactra) Meningococcal 2016-03-22 Completed [facility] Vaccine- 00:00:00 - External Conjugate(Menactra) Meningococcal 2016-03-22 Completed [facility] Vaccine- 00:00:00 - External Conjugate(Menactra) Meningococcal 2016-03-22 Completed [facility] Vaccine- 00:00:00 - External Conjugate(Menactra) Meningococcal 2016-03-22 Completed [facility] Vaccine- 00:00:00 - External Conjugate(Menactra) Meningococcal 2016-03-22 Completed [facility] Vaccine- 00:00:00 - External Conjugate(Menactra) Meningococcal 2016-03-22 Completed [facility] Vaccine- 00:00:00 - External Conjugate(Menactra) Meningococcal 2016-03-22 Completed [facility] Vaccine- 00:00:00 - External Conjugate(Menactra) Meningococcal 2016-03-22 Completed [facility] Vaccine- 00:00:00 - External Conjugate(Menactra) Meningococcal 2016-03-22 Completed [facility] Vaccine- 00:00:00 - External Conjugate(Menactra) Meningococcal 2016-03-22 Completed [facility] Vaccine- 00:00:00 - External Conjugate(Menactra) Meningococcal 2016-03-22 Completed [facility] Vaccine- 00:00:00 - External Conjugate(Menactra) Meningococcal 2016-03-22 Completed [facility] Vaccine- 00:00:00 - External Conjugate(Menactra) Meningococcal 2016-03-22 Completed [facility] Vaccine- 00:00:00 - External Conjugate(Menactra) Influenza Virus [...] External HPV 4 (Human 2012-05-22 Completed [facility] Peñao ld Papillomavirus) 00:00:00 - Externa l HPV [...] - Externa l Meningococcal 2012-03-22 Completed [facility] Hortonyb old Vaccine- 00:00:00 - External Conjugate(Menactra) HPV 4 (Human 2012-03-22 Completed [facility] Seybo ld Papillomavirus) 00:00:00 - Externa l Meningococcal 2012-03-22 Completed [facility]ain[facility] Seyb old Vaccine- 00:00:00 - External Conjugate(Menactra) HPV 4 (Human 2012-03-22 Completed Alaina Seybo ld Papillomavirus) 00:00:00 - Externa l Meningococcal 2012-03-22 Completed [facility]ain[facility] Seyb old Vaccine- 00:00:00 - External Conjugate(Menactra) HPV 4 (Human 2012-03-22 Completed Alaina Peñao ld Papillomavirus) 00:00:00 - Externa l HEPATITIS A- 2010-10-26 Completed Alaina Segraceo ld PEDI/ADOL 00:00:00 - External HEPATITIS A- 2010-10-26 Completed Alaina Gibson ld PEDI/ADOL 00:00:00 - External HEPATITIS A- 2010-10-26 Completed Alaina Gibson ld PEDI/ADOL 00:00:00 - External HEPATITIS A- 2010-10-26 Completed Alaina Gibson ld PEDI/ADOL 00:00:00 - External HEPATITIS A- 2010-10-26 Completed Alaina Gibson ld PEDI/ADOL 00:00:00 - External HEPATITIS A- 2010-10-26 Completed Alaina Peñao ld PEDI/ADOL 00:00:00 - External HEPATITIS A- 2010-10-26 Completed Alaina Peñao ld PEDI/ADOL 00:00:00 - External HEPATITIS A- 2010-10-26 Completed Alaina Hortonybo ld PEDI/ADOL 00:00:00 - External HEPATITIS A- 2010-10-26 Completed Alaina Peñao ld PEDI/ADOL 00:00:00 - External HEPATITIS A- 2010-10-26 Completed Alaina Hortonybo ld PEDI/ADOL 00:00:00 - External HEPATITIS A- 2010-10-26 Completed Alaina Hortonybo ld PEDI/ADOL 00:00:00 - External HEPATITIS A- 2010-10-26 Completed Alaina Hortonybo ld PEDI/ADOL 00:00:00 - External HEPATITIS A- 2010-10-26 Completed Alaina Gibson ld PEDI/ADOL 00:00:00 - External HEPATITIS A- 2010-10-26 Completed Alaina Gibson ld PEDI/ADOL 00:00:00 - External HEPATITIS A- 2010-10-26 Completed Alaina Gibson ld PEDI/ADOL 00:00:00 - External HEPATITIS A- 2010-10-26 Completed Alaina Gibson ld PEDI/ADOL 00:00:00 - External HEPATITIS A- 2010-10-26 Completed Alaina Peñao ld PEDI/ADOL 00:00:00 - External Vital Signs Vital Name Observation Time Observation Value Comments Source Systolic blood 2023-06-25 14:18:00 120 mm[Hg] Alania Peñaold - pressure External Diastolic blood 2023-06-25 14:18:00 75 mm[Hg] Maine rosales Seybold - pressure External Heart rate 2023-06-25 14:18:00 80 /min Alaina Avelar eybold - External Respiratory rate 2023-06-25 14:18:00 16 /min Ivon Peñaold - External Body height 2023-06-25 14:18:00 172.7 cm Alaina waltonbold - External Body weight 2023-06-25 14:18:00 118.434 kg Alaina Avelar eybold - External BMI 2023-06-25 14:18:00 39.70 kg/m2 Alaina S eybold - External Systolic blood 2023-03-19 13:23:00 124 mm[Hg] Alaina Seybold - pressure External Diastolic blood 2023-03-19 13:23:00 78 mm[Hg] Seanse y Seybold - pressure External Heart rate 2023-03-19 13:23:00 103 /min Alaina Avelar eybold - External Body temperature 2023-03-19 13:23:00 36.83 Monalisa Ivon ey Seybold - External Respiratory rate 2023-03-19 13:23:00 18 /min Ivon ey Seybold - External Body height 2023-03-19 13:23:00 172.7 cm Alaina Avelar eybold - External Body weight 2023-03-19 13:23:00 107.502 kg Alaina Avelar eybold - External BMI 2023-03-19 13:23:00 36.04 kg/m2 Alaina Avelar eybold - External Oxygen saturation in 2023-03-19 13:23:00 99 /min Alaina Cavanaugh - Arterial blood by External Pulse oximetry Systolic blood 2023-03-12 14:54:00 124 mm[Hg] Alaina Seybold - pressure External Diastolic blood 2023-03-12 14:54:00 84 mm[Hg] Maine y Seybold - pressure External Heart rate 2023-03-12 14:54:00 95 /min Alaina Avelar eybold - External Body weight 2023-03-12 14:54:00 107.684 kg Alaina Avelar eybold - External BMI 2023-03-12 14:54:00 36.10 kg/m2 Alaina Avelar eybold - External Systolic blood 2023-02-27 15:53:00 120 mm[Hg] Alaina Seybold - pressure External Diastolic blood 2023-02-27 15:53:00 81 mm[Hg] Maine y Seybold - pressure External Heart rate 2023-02-27 15:53:00 90 /min Alaina Avelar eybold - External Body temperature 2023-02-27 15:53:00 36.67 Monalisa Ivon ey Seybold - External Respiratory rate 2023-02-27 15:53:00 18 /min Ivon ey Seybold - External Body height 2023-02-27 15:53:00 172.7 cm Alaina Avelar eybold - External Body weight 2023-02-27 15:53:00 107.502 kg Alaina Avelar eybold - External BMI 2023-02-27 15:53:00 36.04 kg/m2 Alaina S eybold - External Systolic blood 2023-02-27 14:57:00 120 mm[Hg] Alaina Seybold - pressure External Diastolic blood 2023-02-27 14:57:00 68 mm[Hg] Seanse y Seybold - pressure External Heart rate 2023-02-27 14:57:00 106 /min Alaina Avelar eybold - External Body temperature 2023-02-27 14:57:00 36.78 Monalisa Ivon ey Seybold - External Respiratory rate 2023-02-27 14:57:00 18 /min Ivon walton Seybold - External Body height 2023-02-27 14:57:00 172.7 cm Alaina Avelar eybold - External Body weight 2023-02-27 14:57:00 107.502 kg Alaina Avelar eybold - External BMI 2023-02-27 14:57:00 36.04 kg/m2 Alaina Avelar eybold - External Oxygen saturation in 2023-02-27 14:57:00 99 /min Alaina Hortongracekat - Arterial blood by External Pulse oximetry Systolic blood 2023-02-16 19:00:00 132 mm[Hg] Alaina Seybold - pressure External Diastolic blood 2023-02-16 19:00:00 80 mm[Hg] [place] y Seybold - pressure External Heart rate 2023-02-16 19:00:00 78 /min Alaina S eybold - External Respiratory rate 2023-02-16 19:00:00 16 /min Ivon walton Seybold - External Body height 2023-02-16 19:00:00 172.7 cm Alaina Avelar eybold - External Body weight 2023-02-16 19:00:00 105.235 kg Alaina S eybold - External BMI 2023-02-16 19:00:00 35.28 kg/m2 Alaina S eybold - External Systolic blood 2023-02-08 13:41:00 140 mm[Hg] Alaina Seybold - pressure External Diastolic blood 2023-02-08 13:41:00 76 mm[Hg] [place] y Seybold - pressure External Heart rate 2023-02-08 13:41:00 132 /min Alaina Avelar eybold - External Body temperature 2023-02-08 13:41:00 36 Monalisa Ivon ey Seybold - External Respiratory rate 2023-02-08 13:41:00 15 /min Ivon ey Seybold - External Body height 2023-02-08 13:41:00 172.7 cm Alaina Avelar eybold - External Body weight 2023-02-08 13:41:00 108.863 kg Alaina Avelar eybold - External BMI 2023-02-08 13:41:00 36.49 kg/m2 Alaina Avelar eybold - External Systolic blood 2023-01-12 20:18:00 113 mm[Hg] Alaina Seybold - pressure External Diastolic blood 2023-01-12 20:18:00 78 mm[Hg] Maine rosales Seybold - pressure External Heart rate 2023-01-12 20:18:00 98 /min Alaina Avelar eybold - External Body temperature 2023-01-12 20:18:00 36.78 Monalisa Ivon ey Seybold - External Respiratory rate 2023-01-12 20:18:00 16 /min Ivon walton Seybold - External Body height 2023-01-12 20:18:00 172.7 cm Alaina Avelar eybold - External Body weight 2023-01-12 20:18:00 102.967 kg Alaina Avelar eybold - External BMI 2023-01-12 20:18:00 34.52 kg/m2 Alaina Avelar eybold - External Oxygen saturation in 2023-01-12 20:18:00 99 /min Alaina Cavanaugh - Arterial blood by External Pulse oximetry Systolic blood 2023-01-10 16:04:00 132 mm[Hg] Alaina Seybold - pressure External Diastolic blood 2023-01-10 16:04:00 70 mm[Hg] [place] y Seybold - pressure External Heart rate 2023-01-10 16:04:00 121 /min Alaina Avelar eybold - External Body temperature 2023-01-10 16:04:00 36.78 Monalisa Ivon ey Seybold - External Respiratory rate 2023-01-10 16:04:00 15 /min Ivon ey Seybold - External Body height 2023-01-10 16:04:00 172.7 cm Alaina Avelar eybold - External Body weight 2023-01-10 16:04:00 103.874 kg Alaina S eybold - External BMI 2023-01-10 16:04:00 34.82 kg/m2 Alaina S eybold - External Systolic blood 2023-01-04 14:08:00 122 mm[Hg] Alaina Seybold - pressure External Diastolic blood 2023-01-04 14:08:00 82 mm[Hg] Seanse y Seybold - pressure External Heart rate 2023-01-04 14:08:00 114 /min Alaina S eybold - External Body temperature 2023-01-04 14:08:00 37 Monalisa Ivon ey Seybold - External Respiratory rate 2023-01-04 14:08:00 15 /min Ivon ey Seybold - External Body height 2023-01-04 14:08:00 172.7 cm Alaina Avelar eybold - External Body weight 2023-01-04 14:08:00 103.874 kg Alaina Avelar eybold - External BMI 2023-01-04 14:08:00 34.82 kg/m2 Alaina S eybold - External Systolic blood 2022-12-29 16:43:00 133 mm[Hg] Alaina Seybold - pressure External Diastolic blood 2022-12-29 16:43:00 87 mm[Hg] Seanse y Seybold - pressure External Heart rate 2022-12-29 16:43:00 83 /min Alaina S eybold - External Body temperature 2022-12-29 16:43:00 36.72 Monalisa Ivon ey Seybold - External Respiratory rate 2022-12-29 16:43:00 18 /min Ivon ey Seybold - External Body height 2022-12-29 16:43:00 172.7 cm Alaina S eybold - External Body weight 2022-12-29 16:43:00 99.338 kg Alaina S eybold - External BMI 2022-12-29 16:43:00 33.30 kg/m2 Alaina Avelar eybold - External Systolic blood 2022-11-23 16:11:00 114 mm[Hg] Alaina Seybold - pressure External Diastolic blood 2022-11-23 16:11:00 62 mm[Hg] [place] rosales Seybold - pressure External Heart rate 2022-11-23 16:11:00 117 /min Alaina Avelar eybold - External Body temperature 2022-11-23 16:11:00 37.28 Monalisa Ivon ey Seybold - External Respiratory rate 2022-11-23 16:11:00 14 /min Ivon walton Seybold - External Body height 2022-11-23 16:11:00 172.7 cm Alaina Avelar eybold - External Body weight 2022-11-23 16:11:00 99.791 kg Alaina waltonbold - External BMI 2022-11-23 16:11:00 33.45 kg/m2 Alaina waltonbold - External WEIGHT 2020-10-24 11:14:00 82.101 kg HEIGHT 2020-08-11 [...] [facility]procedure[facility] [code = 503314699] Future Scheduled 2017-01-[address] [facility] 00:00:00 malignant ne[facility] cervix (procedure) [code = 468791164] Future Scheduled [address] [facility] 00:00:00 (procedure) [code = [facility] 25253350] Future Scheduled [address] [facility] Test 00:00:00 (procedure) [code = [facility] 03268983] Future Scheduled 2014-01-28 HEPATITIS C SCREENING CH [...] Type Clinicians Facility Department ID 2021-12-07 Outpatient [facility] [id number] [facility] 05:04:23 [facility] 2021-08-21 Outpatient [facility] [id number] [facility] 09:43:38 [id number] [facility] 2021-08-18 Outpatient [facility] [id number] [facility] 18:00:25 [id number] [facility] 2023-07-25 2023-07-25 Outpatient ALAINA BUCIO [id number] Alaina 08:30:00 08:30:00 LUIS Seybol d 2023-07-24 2023-07-24 Outpatient ALAINA GARY [id number] [place] 00:00:00 00:00:00 VASSIE Seybol d 2023-07-23 2023-07-23 Outpatient ALAINA BUCIO [id number] [place] 00:00:00 00:00:00 LUIS Seybol d 2023-07-20 2023-07-20 Outpatient ALAINA VALLEJO [id number] [place] 00:00:00 00:00:00 AFSANEH Seybol d 2023-07-13 2023-07-13 Outpatient LAB90 ALAINA FOLEY [id number] [place] 14:35:00 14:35:00 Seybol d 2023-07-13 2023-07-13 Outpatient ALAINA RHODES [id number] [place] 00:00:00 00:00:00 TEQUILA Seybo ld 2023-07-11 2023-07-11 Outpatient ALAINA VILLA [id number] [place] 00:00:00 00:00:00 ATASU Seybol d 2023-07-11 2023-07-11 Outpatient ALAINA CURRY [id number] [place] 00:00:00 00:00:00 ERICKSON Seybol d 2023-07-11 2023-07-11 Outpatient ALAINA RHODES [id number] [place] 00:00:00 00:00:00 TEQUILA Seybo ld 2023-07-10 2023-07-10 Outpatient LAB90 ALAINA FOLEY [id number] [place] 08:35:00 08:35:00 Seybol d 2023-07-10 2023-07-10 Outpatient ALAINA RHODES [id number] [place] 00:00:00 00:00:00 TEQUILA Seybo ld 2023-07-06 2023-07-06 Outpatient LAB53 ALAINA FOLEY [id number] [place] 07:40:00 07:40:00 Seybol d 2023-07-05 2023-07-05 Outpatient ALAINA DEVINE [id number] [place] 09:00:00 09:00:00 RAFY Seybol d 2023-07-05 2023-07-05 Outpatient ALAINA RHODES [id number] [place] 00:00:00 00:00:00 TEQUILA Seybo ld 2023-06-30 2023-06-30 Outpatient ALAINA WILBURN [id number] [place] 14:30:00 14:30:00 JAYESON Seybol d 2023-06-29 2023-06-29 Outpatient ALAINA VALLEJO [id number] [place] 13:45:00 13:45:00 AFSANEH Seybol d 2023-06-29 2023-06-29 Outpatient ALAINA VALLEJO [id number] [place] 08:30:00 08:30:00 AFSANEH Seybol d 2023-06-28 2023-06-28 Outpatient ALAINA CURRY [id number] [place] 00:00:00 00:00:00 ERICKSON Seybol d 2023-06-27 2023-06-27 Outpatient ALAINA VALLEJO [id number] [place] 00:00:00 00:00:00 AFSANEH Seybol d 2023-06-27 2023-06-27 Outpatient IOANA FOLEY [id number] [place] 00:00:00 00:00:00 MD RAJAN Seybol d 2023-06-27 2023-06-27 Outpatient ALAINA RHODES [id number] [place] 00:00:00 00:00:00 TEQUILA Seybo ld 2023-06-26 2023-06-26 Outpatient ALAINA BRYAN [id number] [place] 09:00:00 09:00:00 JULIO Seybol d 2023-06-25 2023-06-25 Outpatient ALAINA RHODES [id number] [place] 09:30:00 09:30:00 TEQUILA Seybo ld 2023-06-25 2023-06-25 Outpatient LAB47 ALAINA FOLEY [id number] [place] 08:35:00 08:35:00 Seybol d 2023-06-21 2023-06-21 Outpatient ALAINA DEVINE [id number] [place] 09:00:00 09:00:00 RAFY Seybol d 2023-06-08 2023-06-08 Outpatient ISELA TATUM [id number] [place] 16:00:00 16:00:00 Seybol d 2023-06-08 2023-06-08 Outpatient IOANA FOLEY [id number] [place] 00:00:00 00:00:00 MD RAJAN Seybol d 2023-06-01 2023-06-01 Outpatient ALAINA FOLEY [id number] [place] 00:00:00 00:00:00 Seybol d 2023-05-31 2023-05-31 Outpatient 39, HOLTER ALAINA FOLEY [id number] [place] 10:15:00 10:15:00 Seybol d 2023-05-31 2023-05-31 Outpatient ALAINA VILLA [id number] [place] 10:00:00 10:00:00 ATASU Seybol d 2023-05-31 2023-05-31 Outpatient ALAINA CURRY [id number] [place] 00:00:00 00:00:00 ERICKSON Seybol d 2023-05-28 2023-05-28 Outpatient ALAINA AVILA [id number] [place] 14:00:00 14:00:00 SUMIT Seybol d 2023-05-16 2023-05-16 Outpatient ALAINA VALLEJO [id number] [place] 00:00:00 00:00:00 AFSANEH Seybol d 2023-05-11 2023-05-11 Outpatient LAB90 ALAINA FOLEY [id number] [place] 08:20:00 08:20:00 Seybol d 2023-04-23 2023-04-23 Outpatient GENEVIEVE ALAINA FOLEY [id number] [place] 00:00:00 00:00:00 AFSANEH Seybol d 2023-04-10 2023-04-10 Outpatient MAIKEL ALAINA FOLEY [id number] [place] 14:15:00 14:15:00 KARINA Seybol d 2023-04-06 2023-04-06 Outpatient VALENTÍNFÉLIXDez ALAINA FOLEY [id number] [place] 15:15:00 15:15:00 KARINA Seybol d 2023-04-05 2023-04-05 Outpatient DAISY ALAINA FOLEY [id number] [place] 11:15:00 11:15:00 ATASU Seybol d 2023-04-05 2023-04-05 Outpatient DAISYALAINA [id number] [place] 08:45:00 08:45:00 ATASU Seybol d 2023-03-29 2023-03-29 Outpatient ALAINA FOLEY [id number] [place] 15:00:00 15:00:00 Seybol d 2023-03-29 2023-03-29 Outpatient ALAINA FOLEY [id number] [place] 14:30:00 14:30:00 Seybol d 2023-03-28 2023-03-28 Outpatient ALAINA FOLEY [id number] [place] 14:30:00 14:30:00 Seybol d 2023-03-20 2023-03-20 Outpatient GENEVIEVE ALAINA FOLEY [id number] [place] 00:00:00 00:00:00 AFSANEH Seybol d 2023-03-20 2023-03-20 Outpatient ALAINA FOLEY [id number] [place] 00:00:00 00:00:00 Seybol d 2023-03-19 2023-03-19 Outpatient NATHALIE ZAMUDIO [id number] [place] 11:45:00 11:45:00 Seybol d 2023-03-19 2023-03-19 Outpatient ALAINA FOLEY [id number] [place] 08:40:00 08:40:00 Seybol d 2023-03-19 2023-03-19 Outpatient LAB ALAINA FOLEY [id number] [place] 08:05:00 08:05:00 Seybol d 2023-03-12 2023-03-12 Outpatient ALAINA BUCIO [id number] [place] 10:15:00 10:15:00 LUIS Seybol d 2023-03-12 2023-03-12 Outpatient ALAINA BUCIO [id number] [place] 10:15:00 10:15:00 LUIS Seybol d 2023-03-12 2023-03-12 Outpatient ALAINA HUFF [id number] [place] 00:00:00 00:00:00 STEPHEN Seybol d 2023-03-06 2023-03-06 Outpatient IOANA FOLEY [id number] [place] 00:00:00 00:00:00 MD RAJAN Seybol d 2023-03-05 2023-03-05 Outpatient ALAINA FOLEY [id number] [place] 10:00:00 10:00:00 Seybol d 2023-03-01 2023-03-01 Outpatient ALAINA VALLEJO [id number] [place] 00:00:00 00:00:00 AFSANEH Seybol d 2023-03-01 2023-03-01 Outpatient NATHALIE ZAMUDIO [id number] [place] 00:00:00 00:00:00 Seybol d 2023-02-28 2023-02-28 Outpatient LAB90 ALAINA FOLEY [id number] [place] 09:05:00 09:05:00 Seybol d 2023-02-27 2023-02-27 Outpatient ALAINA VALLEJO [id number] [place] 11:00:00 11:00:00 AFSANEH Seybol d 2023-02-27 2023-02-27 Outpatient NATHALIE ZAMUDIO [id number] [place] 10:15:00 10:15:00 Seybol d 2023-02-26 2023-02-26 Outpatient NATHALIE ZAMUDIO [id number] [place] 10:15:00 10:15:00 Seybol d 2023-02-22 2023-02-22 Outpatient LAB90 ALAINA FOLEY [id number] [place] 08:00:00 08:00:00 Seybol d 2023-02-20 2023-02-20 Outpatient ALIANA VILLA [id number] [place] 10:45:00 10:45:00 ATASU Seybol d 2023-02-20 2023-02-20 Outpatient ALAINA FARMER [id number] [place] 00:00:00 00:00:00 JOZEF Seybo ld 2023-02-16 2023-02-16 Outpatient ALAINA FARMER [id number] [place] 14:30:00 14:30:00 JOZEF Seybo ld 2023-02-16 2023-02-16 Outpatient TRED47 ALAINA FOLEY [id number] [place] 09:45:00 09:45:00 Seybol d 2023-02-15 2023-02-15 Outpatient TRED47 ALAINA FOLEY [id number] [place] 09:45:00 09:45:00 Seybol d 2023-02-14 2023-02-14 Outpatient ALAINA VILLA [id number] [place] 09:30:00 09:30:00 ATASU Seybol d 2023-02-14 2023-02-14 Outpatient 39, HOLTER ALAINA FOLEY [id number] [place] 09:00:00 09:00:00 Seybol d 2023-02-13 2023-02-13 Outpatient NATHALIE ZAMUDIO [id number] [place] 10:45:00 10:45:00 Seybol d 2023-02-08 2023-02-08 Outpatient ALAINA HUFF [id number] [place] 09:00:00 09:00:00 STEPHEN Seybol d 2023-02-07 2023-02-07 Outpatient ALAINA HFUF [id number] [place] 08:00:00 08:00:00 STEPHEN Seybol d 2023-02-06 2023-02-06 Outpatient ALAINA VALLEJO [id number] [place] 00:00:00 00:00:00 AFSANEH Seybol d 2023-02-05 2023-02-05 Outpatient ALAINA FOLEY [id number] [place] 00:00:00 00:00:00 [id number] Seybol d 2023-01-30 2023-01-30 Outpatient LIZZ NATHALIENatanael FOLEY [id number] [place] 10:45:00 10:45:00 Seybol d 2023 2023 Outpatient NATHALIE ZAMUDIO [id number] [place] 10:15:00 10:15:00 Seybol d 2023 2023 Outpatient ONWUCHURUBA ALAINA FOLEY [id number] [place] 08:30:00 08:30:00 , CONCHITA Sey bold 2023 2023 Outpatient GROUP, ALAINA FOLEY [id number] [place] 00:00:00 00:00:00 ALAINA Seybol d 2023-01-24 2023-01-24 Outpatient NATHALIE ZAMUDIO [id number] [place] 09:30:00 09:30:00 Seybol d 2023-01-18 2023-01-18 Outpatient RODL, ALAINA FOLEY [id number] [place] 00:00:00 00:00:00 STEPHEN Seybol d 2023-01-18 2023-01-18 Outpatient RODL, ALAINA FOLEY [id number] [place] 00:00:00 00:00:00 STEPHEN Seybol d 2023-01-17 2023-01-17 Outpatient RODL, ALAINA FOLEY [id number] [place] 00:00:00 00:00:00 STEPHEN Seybol d 2023-01-15 2023-01-15 Outpatient ALAINA FOLEY [id number] [place] 00:00:00 00:00:00 Seybol d 2023-01-12 2023-01-12 Outpatient JATIN HENNING [id number] [place] 14:30:00 14:30:00 Seybol d 2023-01-11 2023-01-11 Outpatient ALAINA FOLEY [id number] [place] 11:00:00 11:00:00 Seybol d 2023-01-10 2023-01-10 Outpatient REFUGIO, ALAINA FOLEY [id number] [place] 10:00:00 10:00:00 STEPHEN Seybol d 2023-01-10 2023-01-10 Outpatient HUNDL, ALAINA FOLEY [id number] [place] 00:00:00 00:00:00 STEPHEN Seybol d 2023-01-10 2023-01-10 Outpatient GENEVIEVE, ALAINA FOLEY [id number] [place] 00:00:00 00:00:00 AFSANEH Seybol d 2023-01-08 2023-01-08 Outpatient HUNDL, ALAINA FOLEY [id number] [place] 10:30:00 10:30:00 STEPHEN Seybol d 2023-01-08 2023-01-08 Outpatient HUNDL, ALAINA FOLEY [id number] [place] 10:30:00 10:30:00 STEPHEN Seybol d 2023-01-08 2023-01-08 Outpatient HUNDL, ALAINA FOLEY [id number] [place] 00:00:00 00:00:00 STEPHEN Seybol d 2023-01-05 2023-01-05 Outpatient HUNDL, ALAINA FOLEY [id number] [place] 00:00:00 00:00:00 STEPHEN Seybol d 2023-01-04 2023-01-04 Outpatient LAB90 ALAINA FOLEY [id number] [place] 09:15:00 09:15:00 Seybol d 2023-01-04 2023-01-04 Outpatient HUNDL, ALAINA FOLEY [id number] [place] 08:30:00 08:30:00 STEPHEN Seybol d 2023-01-04 2023-01-04 Outpatient HUNDL, ALAINA FOLEY [id number] [place] 00:00:00 00:00:00 STEPHEN Seybol d 2023-01-04 2023-01-04 Outpatient HUNDL, ALAINA FOLEY [id number] [place] 00:00:00 00:00:00 STEPHEN Seybol d 2023-01-04 2023-01-04 Outpatient GENEVIEVE, ALAINA FOLEY [id number] [place] 00:00:00 00:00:00 AFSANEH Seybol d 2023-01-03 2023-01-03 Outpatient HUNDL, ALAINA FOLEY [id number] [place] 00:00:00 00:00:00 STEPHEN Seybol d 2023-01-03 2023-01-03 Outpatient HUNDL, ALAINA FOLEY [id number] [place] 00:00:00 00:00:00 STEPHEN Seybol d 2023-01-02 2023-01-02 Outpatient ALAINA FOLEY [id number] [place] 10:35:00 10:35:00 Seybol d 2023-01-02 2023-01-02 Outpatient ALAINA FOLEY [id number] [place] 10:35:00 10:35:00 Seybol d 2022-12-31 2022-12-31 Outpatient HUNDL, ALAINA FOLEY [id number] [place] 00:00:00 00:00:00 STEPHEN Seybol d 2022-12-29 2022-12-29 Outpatient GENEVIEVE, ALAINA FOLEY [id number] [place] 11:00:00 11:00:00 AFSANEH Seybol d 2022-12-27 2022-12-27 Outpatient HUNDL, ALANIA FOLEY [id number] [place] 11:00:00 11:00:00 STEPHEN Seybol d 2022-12-26 2022-12-26 Outpatient HUNDL, ALAINA FOLEY [id number] [place] 00:00:00 00:00:00 STEPHEN Seybol d 2022-11-30 2022-11-30 Outpatient HUNDL, ALAINA FOLEY [id number] [place] 00:00:00 00:00:00 STEPHEN Seybol d 2022-11-29 2022-11-29 Outpatient GROUP, ALAINA FOLEY [id number] [place] 00:00:00 00:00:00 ALAINA Seybol d 2022-11-25 2022-11-25 Outpatient ALAINA FOLEY [id number] [place] 00:00:00 00:00:00 Seybol d 2022-11-24 2022-11-24 Outpatient HUNDL, ALAINA FOLEY [id number] [place] 00:00:00 00:00:00 STEPHEN Seybol d 2022-11-24 2022-11-24 Outpatient HUNDL, ALAINA FOLEY [id number] [place] 00:00:00 00:00:00 STEPHEN Seybol d 2022-11-24 2022-11-24 Outpatient ALAINA HUFF ALAINA [id number] [place] 00:00:00 00:00:00 STEPHEN Seybol d 2022-11-24 2022-11-24 Outpatient ALAINA HUFF ALAINA [id number] [place] 00:00:00 00:00:00 STEPHEN Seybol d 2022-11-24 2022-11-24 Outpatient ALAINA HUFF ALAINA [id number] [place] 00:00:00 00:00:00 STEPHEN Seybol d 2022-11-23 2022-11-23 Outpatient LAB90 ALAINA ALAINA [id number] [place] 11:15:00 11:15:00 Seybol d 2022-11-23 2022-11-23 Outpatient ALAINA HUFF ALAINA [id number] [place] 10:30:00 10:30:00 STEPHEN Seybol d 2020-10-24 2020-10-24 Emergency ER [facility] Emergency [id number] [facility] 11:00:00 11:00:00 2020-08-11 2020-08-11 Emergency ER [facility] Emergency [id number] [facility] 12:08:00 12:08:00 2020-02-13 2020-02-13 Emergency [facility] [id number] [facility] 15:03:00 15:03:00 [id number] Results Test Description Test Time Test Comments Results Result Comments Source PHOSPHORUS 2020-08-11 13:34:00 Test Item Value Reference Range Interpretation Comme nts PHOSPHORUS (BEAKER) (test code = 604) 3.4 mg/dL 2.3-4.7 Photographic Enlarger Operator ID - SAGAR [id number] 13:34:00 Test Item Value Reference Range Interpretation Comments MAGNESIUM (BEAKER) (test code = 1.7 mg/dL 1.6-2.6 627) Photographic Enlarger Operator ID - SAGAR CCOMPREHENSIVE METABOLIC [id number] 13:34:00 Test Item Value Reference Range Interpretation [...] S NOT APPLICABLE FOR DIALYSIS PATIEN TS. Photographic Enlarger Operator ID - SAGAR CCREATINE KINASE (CK)2020-08-11 13:34:00 Test Item Value Reference Range Interpretation Comments CREATINE KINASE TOTAL (BEAKER) (test 179 U/L 29-200 code = 380) Photographic Enlarger Operator ID - SAGAR [id number] 13:23:00 Test Item Value Reference Range Interpretation [...] mechanical heart valves.CBC W/PLT COUNT & AUTO [id number] 13:13:00 Test Item Value Reference Range Interpretation [...] 0-1 PERCENT (BEAKER) (test code = 2801) [id number] 16:02:00 Test Item Value Reference Range Interpretation Comments LIPASE (BEAKER) (test code = 749) 36 U/L 8-78 Photographic Enlarger Operator ID - ROSIANGBASIC METABOLIC [id number] 16:02:00 Test Item Value Reference Range Interpretation [...] S NOT APPLICABLE FOR DIALYSIS PATIEN TS. Photographic Enlarger Operator ID - ROSIANGHEPATIC FUNCTION [id number] 16:02:00 Test Item Value Reference Range Interpretation [...] Specimen slightly (test code = 347) hemolyzed Photographic Enlarger Operator ID - ROSIANGURINALYSIS W/ REFLEX URINE [id number] 16:01:00 Test Item Value Reference Range Interpretation [...] = 1521) SOURCE(BEAKER) (test code = 2795) Photographic Enlarger Operator ID - [auto]Photographic Enlarger Operator ID - hankPREGNANCY SCREEN, [id number] 16:01:00 Test Item Value Reference Range Interpretation Comments TEST URINE (BEAKER) (test Negative code = 583) CBC W/PLT COUNT & AUTO [id number] 15:46:00 Test Item Value Reference Range Interpretation [...] 0-1 PERCENT (BEAKER) (test code = 2801) [id number] 13:36:00 Test Item Value Reference Range Interpretation Comments LIPASE (BEAKER) (test code = 749) 41 U/L 8-78 [id number] 13:36:00 Test Item Value Reference Range Interpretation Comments AMYLASE (BEAKER) (test code = 349) 80 U/L 25-125 BASIC METABOLIC [id number] 13:36:00 Test Item Value Reference Range Interpretation [...] APPLICABLE FOR DIALYSIS PATIEN TS. HEPATIC FUNCTION [id number] 13:36:00 Test Item Value Reference Range Interpretation [...] U/L 6-55 347) URINALYSIS W/ REFLEX URINE [id number] 13:20:00 Test Item Value Reference Range Interpretation [...] 1584) SOURCE(BEAKER) (test code = 2795) SCREEN, [id number] 12:46:00 Test Item Value Reference Range Interpretation Comments TEST URINE (BEAKER) (test Negative code = 583) CBC W/PLT COUNT & AUTO [id number] 12:28:00 Test Item Value Reference Range Interpretation [...] 0-1 PERCENT (BEAKER) (test code = 2801) Notes Date/Time Note Provider Source 2023-06-25 09:35:56-00:00 Formatting of this note is d ifferent from the original. [facility] Chief Complaint Patient presents with Vaginal Problem Slimy, white vaginal discharge, does not itch o r burn anymore.
--- NOTE | 2023-07-24 15:58 | ER ---
Nurse's Notes [facility] Name: Annia Seth Age: 28 yrs Sex: Female : 1995 Arrival Date: 07/24/2023 Time: 15:23 Bed DIS8 Private MD: Diagnosis: Historical: - PMHx: 07/24 15:50 Bipolar disorder; Major Depressive Disorder; mb9 ED Course: 15:26 Patient arrived in ED. im 15:32 Annia Grey NP is PHCP. aj3 15:32 Lamin Awan DO is Attending Physician. aj3 15:50 Arm band placed on. mb9 Administered Medications: No medications were administered Outcome: 16:35 Patient left the ED. mb9 Signatures: Annia Grey NP NP aj3 Breneman, Mary Beth, RN RN mb9 Natasha Vicente im
--- NOTE | 2023-07-25 16:35 | EDPHYS ---
Physician Documentation [facility] Name: Annia Seth Age: 28 yrs Sex: Female : 1995 Arrival Date: 07/24/2023 Time: 15:23 Bed DIS8 Private MD: ED Physician Lamin Awan Historical: - PMHx: 07/24 15:50 Bipolar disorder; Major Depressive Disorder; mb9 Administered Medications: No medications were administered Disposition: 21:22 I was immediately available on-site in the Emergency Department for consultation in the va3 care of the patient. Disposition Summary: 07/24/23 15:58 Eloped Notes: Disposition: before being seen by provider michelle Reason: wait time michelle Signatures: Lamin Awan DO [address] StreetMacie jara, RN RN mb9
== END 2023-07-24 16:35 | disposition left against medical advice (07) ==
LOC: ER 15:23
DX: Z02.9 Encounter for administrative examinations, unspecified (principal)